=== PATIENT | male | born 1965 | race Caucasian/White ===

== ENCOUNTER → 2016-06-23 | Outpatient (CLI) | payer BC ==
[~2016-06-23] MED LIST: AZITTAB PO; ERGO500037 PO; HYDR1CAP85 PO; PANT40TA PO; PRED20TA PO; PRED20TA2 PO; VNTHFA/IN INH
[2016-06-23 13:44] LABS: ESTIMATED AVERAGE GLUCOSE 120 mg/dl; HA1C FLAG Normal (Normal)
== END | disposition home or self-care (01) ==
LOC: C.LAB1850 11:55
PROVIDERS: ATTEND Family Medicine
DX: R73.01 Impaired fasting glucose (principal); E55.9 Vitamin D deficiency, unspecified

== ENCOUNTER 2016-09-24 16:59 | Emergency (ER) | payer BC ==
[~2016-09-24] VITALS: Ht 182.9 cm; Wt 147.7 kg
[~2016-09-24 16:59] MED LIST changes: -AZITTAB PO; -ERGO500037 PO; -HYDR1CAP85 PO; -PRED20TA PO; -PRED20TA2 PO; -VNTHFA/IN INH
[2016-09-24 17:01] VITALS: TEMP 36.7; Ht 182.9 cm; Wt 147.7 kg
[2016-09-24] MEDS ORDERED: ERGO500037 PO (17:20)
[2016-09-24] MEDS ORDERED: hydrOXYzine HCL IM SOLN 50 MG/ML 1 ML VIAL IM STA (17:57)
[2016-09-24] MEDS ORDERED: DEXAMETHASONE SOD INJ 10 MG/ML VIAL IM ONE (18:00)
[2016-09-24] MEDS ORDERED: PRED20TA PO (18:02)
[2016-09-24] MEDS ORDERED: HYDR1CAP85 PO (18:02)
--- NOTE | 2016-09-24 18:03 | EMERGENCY ROOM VISIT NOTE ---
ED Visit Note First contact with patient: 17:29 CHIEF COMPLAINT: Itchy skin rash since yesterday HISTORY OF PRESENT ILLNESS: Patient is a 50-year-old white male who presents to the emergency department for evaluation of an itchy skin rash on his legs that he noticed yesterday. His granddaughter was getting , and he could not do anything about it yesterday. He notes a few small, red, slightly raised lesions on his legs. He reports that they're very itchy. He applied calamine lotion to the area. It has not helped. He denies any lesions elsewhere. The patient has been outside in the yard or the [place] recently where there could have been exposure to poison radhames plants. REVIEW OF SYSTEMS: Review of systems as per HPI. All other systems reviewed were negative. At least 6 systems reviewed. PMH: Electronic medical records are reviewed and summarized as above/below. See Problem List. SOCIAL HISTORY: Patient lives at home with his . PHYSICAL EXAM: Vital Signs: See nurses' notes. CONSTITUTIONAL: Patient is an obese 50-year-old white female awake and alert and in no acute distress. INTEGUMENTARY: The patient has a few small scattered lesions noted on his legs. They are slightly red, raised and some appear vesicular in nature, others are excoriated over. He has a lesion on the thighs bilaterally, and behind the left knee. ED course: Patient was medicated with Decadron 10 mg and Vistaril 50 mg IM. Lesions appear consistent with a contact dermatitis, possibly a rhus dermatitis. Differential diagnoses also entertained included urticaria, folliculitis, scabies, among others. The patient will be placed on a course of oral prednisone. He was advised to follow-up with his primary care provider if his symptoms are not improving. Problem List Medical Problems: (1) Esophageal Reflux Status: Chronic (2) Hand laceration Status: Resolved (3) Hand laceration Status: Resolved (4) Hyperlipidemia Nec/Nos Status: Chronic (5) Knee sprain Status: Resolved (6) Morbid Obesity Status: Chronic (7) Obstructive Sleep Apnea (Adult) (Pediatric) Status: Chronic (8) Patellar dislocation Status: Resolved (9) Work related injury Status: Resolved Surgical Problems: (1) H/O resection of large bowel Status: Resolved Current/Historical Medications Scheduled Ergocalciferol (Vitamin D 36594 Unit), 50,000 UNIT PO Q2D Pantoprazole (Protonix), 40 MG PO QAM Prednisone (Prednisone), 0 PO DAILY Scheduled PRN Hydroxyzine Pamoate (Vistaril), 1-2 CAP PO Q6 PRN for Itching Allergies Coded Allergies: Latex2 -Systemic Allergic Response (Verified Allergy, Severe, HIVES, ) Atorvastatin (Verified Allergy, Intermediate, "FELT LIKE LUMP IN STOMACH- PAINFUL", 09/24/16) Vital Signs Date Time Temp Pulse Resp B/P (MAP) Pulse Ox O2 Delivery O2 Flow Rate FiO2 09/24/16 18:32 78 20 148/82 97 09/24/16 17:01 36.7 81 18 151/83 94 Room Air Medications Administered Medications (Trade) Dose Ordered Sig/Omar Route Start Time Stop Time Status Last Admin Dose Admin Dexamethasone Sodium Phosphate (Decadron Inj) 10 mg NOW ONCE IM 09/24/16 18:00 09/24/16 18:01 DC 09/24/16 18:24 10 MG Hydroxyzine HCl (Vistaril IM) 50 mg NOW STAT IM 09/24/16 17:57 09/24/16 17:58 DC 09/24/16 18:24 50 MG Departure Information Impression Primary Impression: Pruritic rash Prescriptions Hydroxyzine Pamoate (VISTARIL) 25 Mg Cap 1-2 CAP PO Q6 Y for Itching, #30 CAP Prov: Bonnie Curran PA 09/24/16 Prednisone (Prednisone) 20 Mg Tab 0 PO DAILY, #30 TAB 3 DAILY FOR 5 DAYS, THEN 2 DAILY FOR 5 DAYS, THEN 1 DAILY FOR 5 DAYS. Prov: Bonnie Curran PA 09/24/16 Referrals Rodger Kearns M.D. (PCP) Patient Instructions My [facility] Additional Instructions DO NOT drive, drink alcohol, operate machinery, or perform dangerous activities today. You were given medications in the ER that can affect your ability to safely function or operate a vehicle. Prednisone 20mg: Once daily as instructed until the prescription is finished. It is best to take this earlier in the day as some patients note occasional difficulty falling asleep when taken in the late evening. Hydroxyzine 25mg: use 25 to 50 mg as needed every six hours for swelling, itching, or hives. This medication is sedating and will cause drowsiness. Avoid alcohol, operating machinery or dangerous equipment, working on ladders or roofs, DRIVING, or situations where being under the influence may be dangerous. Zantac 75: Take two pills twice a day along with Benadryl as needed for swelling , itching, or hives. Most people know this for its affect on the stomach, but it also acts similar to, but less potent than Benadryl for allergic reactions. Zantac is available [id number]. Continue current medications. Return to the emergency department for worsening of your rash, swelling of your face, lips, tongue, or throat, difficulty breathing, vomiting, or as needed. Follow-up with your primary care physician in 2-3 days for a recheck of your current condition.
[2016-09-24 18:32] VITALS: BP 148/82; PULSE 78; O2SAT 97
== END 2016-09-24 18:35 | disposition home or self-care (01) ==
LOC: C.EDB 17:00 → C.EDD 18:35
DX: L29.9 Pruritus, unspecified (principal); K21.9 Gastro-esophageal reflux disease without esophagitis; E78.5 Hyperlipidemia, unspecified; E66.01 Morbid (severe) obesity due to excess calories; G47.33 Obstructive sleep apnea (adult) (pediatric)

== ENCOUNTER → 2016-11-10 | Outpatient (CLI) | payer BC ==
[~2016-11-10] MED LIST changes: +ERGO500037 PO; +PRED20TA PO
[2016-11-10 15:32] LABS: ALT/SGPT 38 U/L (12-78); BLOOD UREA NITROGEN 15 mg/dl (7-18); BUN/CREATININE RATIO 15.4 (10-20); CALCIUM 9.1 mg/dl (8.5-10.1); CARBON DIOXIDE 25 mmol/L (21-32); CHLORIDE 104 mmol/L (98-107); CHOLESTEROL 164 mg/dl (0-200); CREATININE 0.97 mg/dl (0.60-1.40); GLUCOSE 79 mg/dl (70-99); POTASSIUM 3.6 mmol/L (3.5-5.1); SODIUM 138 mmol/L (136-145)
[2016-11-10 15:42] LABS: ALB/GLOB RATIO 0.9 (0.9-2); ALKALINE PHOSPHATASE 90 U/L (45-117); AST/SGOT 20 U/L (15-37); CHOLESTEROL/HDL RATIO 4.8; HDL CHOLESTEROL 34 mg/dl; LDL CHOLESTEROL CALCULATED 104 mg/dl; THYROID STIMULATING HORMONE 0.959 uIu/ml (0.300-4.500); TRIGLYCERIDES 128 mg/dl (0-150); VERY LOW DENSITY LIPOPROT CALC 26 mg/dl
[2016-11-11 08:23] LABS: ESTIMATED AVERAGE GLUCOSE 105 mg/dl; HA1C FLAG Normal (Normal)
== END | disposition home or self-care (01) ==
LOC: C.LAB1850 13:28
PROVIDERS: ATTEND Family Medicine
DX: R73.03 Prediabetes (principal); E55.9 Vitamin D deficiency, unspecified

== ENCOUNTER 2017-01-07 11:27 | Emergency (ER) | payer BC ==
[~2017-01-07] VITALS: Ht 182.9 cm; Wt 148.0 kg
[2017-01-07 11:45] VITALS: TEMP 36.6
[2017-01-07] MEDS ORDERED: ALBUT/IPRATROP 3MG/0.5MG NEB 3 ML VIAL INH STA (12:09)
[2017-01-07] MEDS ORDERED: METHYLPREDNISOLONE 125 MG VIAL IV STA (12:09)
[2017-01-07] MEDS ORDERED: HYDROCODONE/HOMATROPINE SYRUP 5MG/1.5MG 5ML UDP PO STA (12:09)
[2017-01-07 13:01] VITALS: Ht 182.9 cm; Wt 148.0 kg
[2017-01-07 13:16] VITALS: BP 127/57; PULSE 72; O2SAT 95
[2017-01-07 13:24] LABS: BASO % 0.2 %; BASO ABS # 0.02 K/uL (0-0.2); COMPLETE YES; EOS % 2.4 %; HEMATOCRIT 41.6 % (42-52); IG% 0.7 %; LYMPH ABS # 1.75 K/uL (1.2-3.4); MEAN CELL VOLUME 84.7 fL (80-100); MEAN CORPUSCULAR HEMOGLOBIN 29.1 pg (25-34); MEAN CORPUSCULAR HGB CONC 34.4 g/dl (32-36); MEAN PLATELET VOLUME 9.6 fL (7.4-10.4); MONO % 8.2 %; NEUT % 68.5 %; PLATELET COUNT 267 K/uL (130-400); RED BLOOD COUNT 4.91 M/uL (4.7-6.1); WHITE BLOOD COUNT 8.76 K/uL (4.8-10.8)
[2017-01-07 13:40] LABS: CREATININE 0.93 mg/dl (0.60-1.40)
--- NOTE | 2017-01-07 13:40 | DIAGNOSTIC IMAGING REPORT ---
CHEST 2 VIEWS ROUTINE CLINICAL HISTORY: Respiratory distress COMPARISON STUDY: 05/22/2014 FINDINGS: The heart is at the upper limits of normal in size. There is no failure. There is no focal pulmonary consolidation. There are no pleural effusions.[ IMPRESSION: No active disease in the chest. Electronically signed by: Lorenzo Farrell M.D. 01/07/2017 1:39 PM Dictated Date/Time: 01/07/2017 1:38 PM
[2017-01-07 13:41] LABS: BUN/CREATININE RATIO 17.1 (10-20); CALCIUM 8.8 mg/dl (8.5-10.1); POTASSIUM 3.8 mmol/L (3.5-5.1)
[2017-01-07 13:43] LABS: ALB/GLOB RATIO 0.8 (0.9-2)
[2017-01-07] MEDS ORDERED: AZITTAB PO (14:20)
[2017-01-07] MEDS ORDERED: VNTHFA/IN INH (14:20)
[2017-01-07] MEDS ORDERED: PRED20TA2 PO (14:20)
--- NOTE | 2017-01-08 12:08 | EMERGENCY ROOM VISIT NOTE ---
ED Visit Note First contact with patient: 11:50 Chief Complaint: I think have a chest cold. History of Present Illness: Mr. Lawson is a 51-year-old white male who ambulates into the ED accompanied by his complaining of cough and, rib pain. Historically patient does report he has had a history of bronchitis and pneumonia. Patient reports her symptoms started approximately 2 weeks ago with a mild nonproductive cough. During the last 2 weeks he reports he has gradually increasing cough. This cough remains nonproductive. He is tried over-the- counter cough medications without relief. He reports last 2 days his cough has become so severe that he cannot lie down and he has lost sleep. Associated with this cough he reports he has having bilateral lateral rib pain. He describes this pain as a constant dull achy sensation that becomes sharp with cough. He rates his discomfort 7/10. His pain is nonradiating. He has not identified any other aggravating factors related to the pain. He has not taken any medications for his discomfort prior to arrival at the hospital. He denies any other associated symptoms with his cough and pain including fevers, chills, sweats, skin eruptions, skin color changes, previous clots, claudication , palpitations, shortness of breath, wheezing, anterior chest pain, recent surgery, nausea, vomiting, orthopnea, dependent edema. Review of Systems: As noted above in history of present illness. All body systems were reviewed and found to be negative as noted above. Past Medical History: Prediabetes, status post hernia repair, unspecified knee surgery and partial colectomy. Current Medications: Protonix, vitamin D. Allergies to Medications: Latex, atorvastatin. Social History: Patient is currently employed; he lives with his and feels safe in his home environment; he admits to chewing tobacco and denies alcohol use. Physical Examination: Vital Signs: Date Time Temp Pulse Resp B/P (MAP) Pulse Ox O2 Delivery O2 Flow Rate FiO2 01/07/17 13:16 72 18 127/57 95 Room Air 01/07/17 12:56 72 01/07/17 12:38 95 Room Air 01/07/17 11:49 96 Room Air 01/07/17 11:45 36.6 78 20 130/75 97 Room Air GENERAL: 51-year-old male in mild distress due to symptoms, nontoxic-appearing, afebrile and hemodynamically stable. NEUROLOGICAL: Awake, alert and oriented to person, place and time. Answering questions appropriately and following commands. Normal gait. Good hand eye coordination. No focal motor sensory deficits. SKIN: Warm, dry and pink. No soft tissue eruptions or trauma noted. HEENT: Atraumatic and normocephalic. PERRLA. Sclera white and conjunctiva pink. No drainage from naris. Oral cavity moist and pink. Pharynx is nonerythematous or edematous. Speech normal. No lymphadenopathy. Trachea midline. No jugular venous distention. BACK: No tenderness over the bony spine. No CVA tenderness. THORAX: Lungs sounds show a few coarse rhonchi in the right base that clears with cough. There is a decrease in air movement bilaterally primarily in the bases. No wheezing, rales. Mild tenderness with chest compression without crepitus, subcutaneous air or deformities noted. No increased respiratory effort or rate. HEART: Regular rate and rhythm. No gallops, rubs or murmurs are appreciated. ABDOMEN: Obese, soft and nontender. Positive bowel sounds in all quadrants. No guarding, rigidity or organomegaly. EXTREMITIES: Moves all extremities well on command and with purpose. All distal neurovascular statuses are intact and equal bilaterally. No calf tenderness or cords. ED Course: Patient is assessed as noted above. Patient's medication list was reviewed. Laboratory Testing: Test 01/07/17 12:50 01/07/17 13:05 Range/Units White Blood Count 8.76 4.8-10.8 K/uL Red Blood Count 4.91 4.7-6.1 M/uL Hemoglobin 14.3 14.0-18.0 g/dL Hematocrit 41.6 42-52 % Mean Corpuscular Volume 84.7 80-100 fL Mean Corpuscular Hemoglobin 29.1 25-34 pg Mean Corpuscular Hemoglobin Concent 34.4 32-36 g/dl Platelet Count 267 130-400 K/uL Mean Platelet Volume 9.6 7.4-10.4 fL Neutrophils (%) (Auto) 68.5 % Lymphocytes (%) (Auto) 20.0 % Monocytes (%) (Auto) 8.2 % Eosinophils (%) (Auto) 2.4 % Basophils (%) (Auto) 0.2 % Neutrophils # (Auto) 6.00 1.4-6.5 K/uL Lymphocytes # (Auto) 1.75 1.2-3.4 K/uL Monocytes # (Auto) 0.72 0.11-0.59 K/uL Eosinophils # (Auto) 0.21 0-0.5 K/uL Basophils # (Auto) 0.02 0-0.2 K/uL RDW Standard Deviation 44.9 36.4-46.3 fL RDW Coefficient of Variation 14.6 11.5-14.5 % Immature Granulocyte % (Auto) 0.7 % Immature Granulocyte # (Auto) 0.06 0.00-0.02 K/uL Sodium Level 138 136-145 mmol/L Potassium Level 3.8 3.5-5.1 mmol/L Chloride Level 106 98-107 mmol/L Carbon Dioxide Level 27 21-32 mmol/L Anion Gap 5.0 3-11 mmol/L Blood Urea Nitrogen 16 7-18 mg/dl Creatinine 0.93 0.60-1.40 mg/dl Est Creatinine Clear Calc Drug Dose 140.6 ml/min Estimated GFR () 109.8 Estimated GFR (Non- 94.7 BUN/Creatinine Ratio 17.1 10-20 Random Glucose 104 70-99 mg/dl Calcium Level 8.8 8.5-10.1 mg/dl Total Bilirubin 0.4 0.2-1 mg/dl Aspartate Amino Transf (AST/SGOT) 19 15-37 U/L Alanine Aminotransferase (ALT/SGPT) 35 12-78 U/L Alkaline Phosphatase 94 45-117 U/L Total Protein 7.5 6.4-8.2 gm/dl Albumin 3.4 3.4-5.0 gm/dl Globulin 4.1 2.5-4.0 gm/dl Albumin/Globulin Ratio 0.8 0.9-2 Bedside Troponin I < 0.030 0-0.045 ng/ml Chest X-Rays: Were read by myself and the radiologist showing no acute infiltrates, effusions or pneumothorax. Radiologist notes that the heart border is within upper limits. No signs of heart failure. EKG: Was read by myself and reviewed with ; shows normal sinus rhythm with a ventricular rate of 76 bpm. Normal axis, intervals and complexes. No acute ST changes indicating ischemia, injury or infarction. This was compared to previous from May 2014 in no acute changes were noted. Patient was hydrated with normal saline, he was given an albuterol/Atrovent nebulizer breathing treatment, 125 mg of Solu-Medrol IV and 10 mL of Hycodan cough syrup. Patient was reassessed multiple times during his stay in the emergency department; reevaluation of his lungs he reports he was feeling much better and he had improved air movement and resolution of all scattered rhonchi. Patient's case was reviewed with ; we agreed on diagnostic approach , treatment, disposition and plan. Patient was educated about today's findings and instructed on his treatment plan ; he verbalized understanding and agreement with this plan. Clinical Impression: Acute bronchitis. Decision-Making: Initially my differential diagnosis I considered bronchitis, pneumonia, pulmonary embolism, acute coronary syndrome, thoracic aneurysm, pneumothorax, costochondritis and other causes. Disposition: Patient discharged home in stable condition accompanied by his ; prior to departure he was reassessed and subjectively reported he was still feeling much better and reported he had resolution of pain. Plan: Patient was prescribed a Zithromax for antibiotic coverage, placed on a 5 day course of steroids and was prescribed albuterol inhaler with spacer and instructed on their use. Patient was encouraged to follow-up with family physician for recheck. Patient is encouraged return the ED for worsening symptoms, fevers, coughing up blood, anterior chest pain or any new/concerning symptoms.
== END 2017-01-07 14:47 | disposition home or self-care (01) ==
LOC: C.EDB 11:28 → C.EDC 14:47
DX: J20.9 Acute bronchitis, unspecified (principal); Z87.01 Personal history of pneumonia (recurrent); R73.03 Prediabetes; Z90.49 Acquired absence of other specified parts of digestive tract; Z79.899 Other long term (current) drug therapy; F17.220 Nicotine dependence, chewing tobacco, uncomplicated

== ENCOUNTER 2017-10-12 17:00 | Emergency (ER) | payer BC ==
[~2017-10-12] VITALS: Ht 182.9 cm; Wt 156.6 kg
[~2017-10-12 17:00] MED LIST changes: -PRED20TA PO
[2017-10-12 17:03] VITALS: TEMP 36.8; Ht 182.9 cm; Wt 156.6 kg
[2017-10-12] MEDS ORDERED: HYDR25SU20 PR (18:15)
--- NOTE | 2017-10-12 18:16 | EMERGENCY ROOM VISIT NOTE ---
History First contact with patient: 17:57 Chief Complaint: RECTAL BLEEDING Stated Complaint: BLEEDING HEMROIDS History of Present Illness The patient is a 51 year old male who presents to the Emergency Room with complaints of intermittent rectal bleeding for the last 2 months. The patient states that it is bleeding hemorrhoids. He only bleeds intermittently when he has a bowel movement. He states it is gotten worse over the last 2 months. He states that now hurts to have a bowel movement. He does not have a problem with constipation. He normally does not have to strain to have a bowel movement. He was told 2 years ago when he had a colonoscopy that he has internal hemorrhoids. The patient called his family doctor today and he was instructed to come to the emergency room. The patient has never seen a surgeon for hemorrhoids. The patient denies any abdominal pain, nausea or vomiting. The patient is not on any blood thinners. He does not have any bleeding disorders. Review of Systems 10 system review was performed and was negative unless stated otherwise history of present illness. Past Medical/Surgical History Medical Problems: (1) Esophageal Reflux (2) Hand laceration (3) Hand laceration (4) Hyperlipidemia Nec/Nos (5) Knee sprain (6) Morbid Obesity (7) Obstructive Sleep Apnea (Adult) (Pediatric) (8) Patellar dislocation (9) Work related injury Surgical Problems: (1) H/O resection of large bowel Social History Smoking Status: Never Smoker Occupation Status: employed Current/Historical Medications Scheduled Ergocalciferol (Vitamin D 83558 Unit), 50,000 UNIT PO Q2D Pantoprazole (Protonix), 40 MG PO QAM Physical Exam Vital Signs Date Time Temp Pulse Resp B/P (MAP) Pulse Ox O2 Delivery O2 Flow Rate FiO2 10/12/17 17:03 36.8 91 17 174/83 94 Room Air Physical Exam GENERAL: Obese 51-year-old male appears in no acute distress. MENTAL Status: Alert and oriented 3. LUNGS: Clear auscultation without wheezes rales or rhonchi. CARDIAC: Regular rate and rhythm with occasional ectopy. Pulses is full and equal throughout. ABDOMEN: Positive bowel sounds all 4 quadrants. Soft, nontender to palpation . Cannot evaluate for organomegaly or masses secondary to patient's size. RECTAL: No external masses noted. Anal sphincter tone intact. Rectal exam was too painful therefore he did not do complete internal rectal exam. I do not appreciate any palpable masses. Stool guaiac was negative Medical Decision & Procedures ED Course The patient was evaluated. The patient's EMR medication list were reviewed. The patient was informed of treatment plan and was in agreement. The patient was discharged home in stable condition. Medical Decision Differential diagnosis include internal versus external thrombosed hemorrhoids. His hemorrhoids are internal the patient will be referred to surgery but in the interim will prescribe him Anusol HC suppositories. [facility] Drug Monitoring Program Search Results: patient reviewed within database Medication Reconcilliation Current Medication List: was personally reviewed by ms Blood Pressure Screening Patient's blood pressure: Elevated blood pressure Blood pressure disposition: Elevated BP felt to be situational Impression Primary Impression: Internal bleeding hemorrhoids Departure Information Dispostion Home / Self-Care Condition GOOD Prescriptions Hydrocortisone Acetate (Rectal (ANUSOL-HC) 25 Mg Sup 25 MG ND BID for 5 Days, #10 SUPP Prov: Geovanna Pepper PA-C 10/12/17 Referrals Rodger Kearns M.D. (PCP) Haider Herman M.D. Forms HOME CARE DOCUMENTATION FORM, IMPORTANT VISIT INFORMATION, WORK / SCHOOL INSTRUCTIONS Patient Instructions ED Hemorrhoids, My [facility] Additional Instructions Try not to strain for a bowel movement. Recommend a stool softener daily such as MiraLAX or Colace. Use Anusol suppositories as directed. Call Dr. Herman for follow-up appointment for definitive treatment.
[2017-10-12 18:32] VITALS: BP 134/80; PULSE 87; O2SAT 96
== END 2017-10-12 18:33 | disposition home or self-care (01) ==
LOC: C.EDB 17:02 → C.EDD 18:33
DX: K64.8 Other hemorrhoids (principal); E66.01 Morbid (severe) obesity due to excess calories; K21.9 Gastro-esophageal reflux disease without esophagitis; Z90.49 Acquired absence of other specified parts of digestive tract

== ENCOUNTER 2024-05-07 07:53 | Inpatient (IN) ==
--- OUTSIDE RECORDS SUMMARY | 2024-05-07 07:59 | External Medical Summary | Summary of Care ---
Author Name Unknown Organization [facility] Address [address] [place] [address] Phone [phone] Care Team Providers Care Senior Stock Plan Administrator Name Role Phone Vera Shaikh MD Primary Care Provider [phone] Reason for Visit * Reason Comments eRx-Medication Refill Encounter Details Date Type Department Care Team (Late st Contact Info) Description 03/27/2024 Refill [facility] [address] [place] [address] Vera Shaikh MD [address] [place] [address] Type 2 diabetes mellitus with hemoglobin A1c goal of less than 7.0% ([facility]) Allergies Active Allergy Reactions Criticality Noted Date Comments Atorvastatin 07/01/2018 "Didn't feel right" documented as of this encounter (statuses as of 03/28/2024) Medications loperamide (IMODIUM) 2 MG Capsule Take 1 Capsule by mouth in the morning. Active Aspirin 81 MG Oral Tablet ChewableIndicat ions:Type 2 diabetes mellitus with hemoglobin A1c goal of less than 7.0% (HCC) Take 1 Tab by mouth daily. with food. 100 Tab 5 07/28/19 21 Active Multivitamin Adult Extra C Oral Tablet Chewable Take by mouth . Active OneTouch Delica Plus [id number] USE TO CHECK BLOOD SUGAR ONCE DAILY. 100 Each 3 12/17/19 22 Active OneTouch Verio In Vitro Strip (Glucose Blood) USE TO CHECK BLOOD SUGAR ONCE DAILY. 100 Strip 3 09/04/19 24 Active Rosuvastatin Calcium 5 MG Oral Tablet (Crestor)Indica tions:Hyperlipi demia with target LDL less than 100 Take 1 Tablet by mouth in the morning. 90 Tablet 1 03/05/20 24 Active Lisinopril 10 MG Oral Tablet (Prinivil)Indic ations:HTN, goal below 130/80 TAKE 1/2 TABLET BY MOUTH DAILY 45 Tablet 1 03/05/20 24 Active Pantoprazole Sodium 40 MG Oral Tablet Delayed Release (Protonix)Indic ations:Gastroes ophageal reflux disease, unspecified whether esophagitis present TAKE 1 TABLET BY MOUTH ONCE DAILY 90 Tablet 1 03/05/20 24 Active Benzonatate 100 MG Oral CapsuleIndicati ons:Bronchitis, complicated Take 1-2 Capsules by mouth 3 times a day as needed for Cough. 45 Capsule 1 03/24/19 25 Active metFORMIN HCl ER 500 MG Oral Tablet Extended Release 24 Hour (Glucophage XR)Indications: Type 2 diabetes mellitus with hemoglobin A1c goal of less than 7.0% (HCC) TAKE 4 TABLETS BY MOUTH DAILY 360 Tablet 2 03/28/19 25 Active metFORMIN HCl ER 500 MG Oral Tablet Extended Release 24 Hour (Glucophage XR)Indications: Type 2 diabetes mellitus with hemoglobin A1c goal of less than 7.0% (HCC) TAKE 4 TABLETS BY MOUTH DAILY 360 Tablet 2 06/13/19 24 025 Discontinued documented as of this encounter (statuses as of 03/28/2024) Active Problems Problem Noted Date Diagnosed Date Hyperlipidemia with target LDL less than 70 11/17 Type 2 diabetes mellitus wit h hemoglobin A1c goal of less than 7.0% 02/21/2021 Routine medical exam 01/28/2020 HTN, goal below 130/80 09/26/2018 History of colonic diverticulitis 09/26/2018 History of partial colectomy 09/26/2018 Tobacco use disorder 09/26/2018 Overview (09/26/2018): Snuff - 1/2 can per day GERD (gastroesophageal reflux disease) 9 MARION (obstructive sleep apnea) 10/02/2012 DJD (degenerative joint disease) 10/02/2012 Obesity, morbid (more than 1 00 lbs over ideal weight or BMI > 40) 10/02/2012 documented as of this encounter (statuses as of 03/28/2024) Resolved Problems Problem Noted Date Diagnosed Date Resolved Date Prediabetes 12/30/2018 02/21/2021 Overview: Per Prediabetes protocol documented as of this encounter (statuses as of 03/28/2024) Immunizations Name Administration Dates Next Due Pneumococcal Conjugate Vacci ne, 20-valent ([id number]) 03/02/2023,05/06/2022(Deferred: Patient Refused - Left without receiving) Seasonal Influenza, PF, 6 M & above, IM , (FluLaval or Fluzone) 01/28/2020,01/27/2019 TDAP, Age 7 and older, IM (Adacel) 12/04/2023 Zoster Vaccine Recombinant (Shingrix) 04/02/2023 documented as of this encounter Social History Tobacco Use Types Packs/Day Years Used Date Smoking Tobacco: Never Smokeless Tobacco: Current Snuff Comments:1/2 a can a day Alcohol Use Standard Drinks/Week Comments Yes 0 (1 standard drink = 0.6 oz pur e alcohol) occas PHQ-2 Answer Date Recorded PHQ Adult Total Score 0 03/24/2024 Hunger Vital Sign Answer Date Recorded Worried About Running Out of Food in the Last Ye ar Never true 09/26/2018 Ran Out of Food in the Last Year Never true 09/26/2018 Sex and Gender Information Value Date Recorded Sex Assigned at Male 09/26/2018 11:07 AM EDT Legal Sex Male 6:27 AM EST Gender Identity Male 09/26/2018 11:07 AM EDT Sexual Orientation Straight 09/26/2018 11 :07 AM EDT documented as of this encounter Miscellaneous Notes * Telephone Encounter - Tonya Montalvo, [facility] - 03/28/2024 9:50 AM ESTSigned Prescriptions: Disp Refills metFORMIN HCl ER 500 MG Oral Tablet Extend*360 Ta*2 Sig: TAKE 4 TABLETS BY MOUTH DAILYAuthorizing Provider: VERA SHAIKH User: TONYA MONTALVO documented in this encounter Plan of Treatment Upcoming Encounters Date Type Department Care Team (Late st Contact Info) Description 04/04/2024 2:00 PM EST Nurse Only Ancillary Department, [place] [phone] Nurse [facility] [address] [id number] 09/23/2024 7:40 AM EDT Office Visit Family Practice, [facility] [address] [phone] Vera Shaikh MD [address] [address] Scheduled Procedures Name Priority Associated Diagnoses Date/Ti me COLONOSCOPY FLEXIBLE PROXIMAL DIAGNOSTIC Recall Screen for colon cancer Health Maintenance Due Date Last Done Comments Cologuard 2010 Fecal Occult Blood Test 2010 Sigmoidoscopy 2010 Zoster Vaccines (2 of 2) 05/28/2023 04/02/2023 COVID-19 Vaccine ( season) 2023 Influenza Vaccine (FLU shot) (#1) 2023 01/28/2020, 01/27/2019 Albumin/Creatinine Ratio 04/02/20242 024, 04/24/2022, 02/21/2021, Additional history exists Colonoscopy 07/29/2024 07/29/2021, 07/17, 12/29/2015, Additional history exists Colorectal Cancer Screening 07/29/2024 HbA1c 09/21/2024 03/24/2024, 11/17, 04/02/2023, Additional history exists Diabetic Eye Exam 12/03/2024 12/04/2023, 09/05/2021 Depression Screening 03/24/2025 03/24/2024 Diabetic Foot Exam 03/24/2025 03/24/2024 GFR 03/24/2025 03/24/2024, 03/19, 04/24/2022, Additional history exists HIV Screening 03/24/2025 Postponed from 1980 (Patient Declined After Education) Hepatitis C Screening 03/24/2025 Postpo kia from 10/19/1983 (Patient Declined After Education) Lipid Panel 03/24/2029 03/24/2024, 03/19, 04/24/2022, Additional history exists DTap/Tdap Vaccines (3 - Td or Tdap) 12/03/2033 12/04/2023, 10/04/2013 Pneumococcal Vaccine: 50+ Years Completed 03/02/2023 HPV (Gardasil) Vaccine Aged Out No lo nger eligible based on patient's age to complete this topic Hepatitis B Vaccine Discontinued MENINGOCOCCAL (MENACTRA/MENVEO) Aged Out No longer eligible based on patient's age to complete this topic documented as of this encounter Medical Devices Not on filedocumented as of this encounter Visit Diagnoses Diagnosis Type 2 diabetes mellitus with hemoglobin A1c goal of less than 7.0% (HCC) documented in this encounter Care Teams Senior Stock Plan Administrator Relationship Specialty Start Date End Date Vera Shaikh MD PCP - General Family Medicine 09/26/18 documented as of this encounter
--- OUTSIDE RECORDS SUMMARY | 2024-05-07 07:59 | External Medical Summary ---
Author Name Unknown Address Unknown Organization K01:[facility] [place] [address] [place] [address] Laboratory Report Ordering Provider Test Date Status PAVAN GAMEZ 03/24/2024 12:11:58 Final Observation Date Value Abnormality Reference (Units ) Status Vitamin B12 03/24/2024 12:11:58 >2000 Above high normal 232-1245 (pg/mL) Final Performing Location [facility] - [address] [place] [address]
--- OUTSIDE RECORDS SUMMARY | 2024-05-07 07:59 | External Medical Summary | Summary of Care ---
Author Name Unknown Organization [facility] Address [address] [place] [address] Phone [phone] Care Team Providers Care Asbestos Coverer Name Role Phone Haider Shaikh MD Primary Care Provider [phone] Reason for Visit * Reason Comments Outpatient Testing Encounter Details Date Type Department Care Team (Late st Contact Info) Description 03/24/2024 1:40 PM EST Laboratory Laboratory, [place] [facility] [address] [place] [address] [facility] [address] [facility] [place] [address] Type 2 diabetes mellitus with hemoglobin A1c goal of less than 7.0% (HCC); Hyperlipidemia with target LDL less than 70; Encounter for long-term (current) use of medications Allergies Active Allergy Reactions Criticality Noted Date Comments Atorvastatin 07/01/2018 "Didn't feel right" documented as of this encounter (statuses as of 03/24/2024) Medications loperamide (IMODIUM) 2 MG Capsule Take 1 Capsule by mouth in the morning. Active Aspirin 81 MG Oral Tablet ChewableIndicati ons:Type 2 diabetes mellitus with hemoglobin A1c goal of less than 7.0% (HCC) Take 1 Tab by mouth daily. with food. 100 Tab 5 1 Active Multivitamin Adult Extra C Oral Tablet Chewable Take by mouth . Active OneTouch Delica Plus [id number] USE TO CHECK BLOOD SUGAR ONCE DAILY. 100 Each 3 2 Active metFORMIN HCl ER 500 MG Oral Tablet Extended Release 24 Hour (Glucophage XR)Indications:T ype 2 diabetes mellitus with hemoglobin A1c goal of less than 7.0% (HCC) TAKE 4 TABLETS BY MOUTH DAILY 360 Tablet 2 4 Active OneTouch Verio In Vitro Strip (Glucose Blood) USE TO CHECK BLOOD SUGAR ONCE DAILY. 100 Strip 3 4 Active Rosuvastatin Calcium 5 MG Oral Tablet (Crestor)Indicat ions:Hyperlipide cj with target LDL less than 100 Take 1 Tablet by mouth in the morning. 90 Tablet 1 4 Active Lisinopril 10 MG Oral Tablet (Prinivil)Indica tions:HTN, goal below 130/80 TAKE 1/2 TABLET BY MOUTH DAILY 45 Tablet 1 4 Active Pantoprazole Sodium 40 MG Oral Tablet Delayed Release (Protonix)Indica tions:Gastroesop hageal reflux disease, unspecified whether esophagitis present TAKE 1 TABLET BY MOUTH ONCE DAILY 90 Tablet 1 4 Active Benzonatate 100 MG Oral CapsuleIndicatio ns:Bronchitis, complicated Take 1-2 Capsules by mouth 3 times a day as needed for Cough. 45 Capsule 1 5 Active documented as of this encounter (statuses as of 03/24/2024) Active Problems Problem Noted Date Diagnosed Date [...] as of this encounter (statuses as of 03/24/2024) Resolved Problems Problem Noted Date Diagnosed Date Resolved Date Prediabetes 12/30/2018 02/21/2021 Overview: Per Prediabetes protocol documented as of this encounter (statuses as of 03/24/2024) Immunizations Name Administration Dates Next Due Pneumococcal Conjugate Vacci ne, 20-valent ([id number]) 03/02/2023,05/06/2022(Deferred: Patient Refused - Left without receiving) [...] AM EDT documented as of this encounter Plan of Treatment Upcoming Encounters Date Type Department Care Team (Late st Contact Info) Description 04/04/2024 2:00 PM EST Nurse Only Ancillary Department, [facility] [address] [phone] Nurse [facility] [address] [id number] 09/23/2024 7:40 AM EDT Office Visit Family [facility], [facility] Lees [address] [phone] Haider Shaikh MD [address] [address] Pending Results Name Type Priority Associated Diagnoses Date /Time COMPREHENSIVE METABOLIC PANEL Lab Routine Type 2 diabetes mellitus with hemoglobin A1c goal of less than 7.0% (HCC) 03/24/2024 12:11 PM EST LIPID PANEL WITH DIRECT LDL IF TG IS HIGH Lab Routine Hyperlipidemia with target LDL less than 70 03/24/2024 12:11 PM EST VITAMIN B12 Lab Routine Encounter for long-term (current) use of medications 03/24/2024 12:11 PM EST MAGNESIUM Lab Routine Encounter for long-term (current) use of medications 03/24/2024 12:11 PM EST HEMOGLOBIN A1C Lab Routine Type 2 diabetes mellitus with hemoglobin A1c goal of less than 7.0% ([facility]) 03/24/2024 12:11 PM EST Scheduled Procedures Name Priority Associated Diagnoses Date/Ti me COLONOSCOPY FLEXIBLE PROXIMAL DIAGNOSTIC Recall Screen for colon cancer Health Maintenance Due Date Last Done Comments Cologuard 2010 Fecal Occult Blood Test 2010 Sigmoidoscopy 2010 Zoster Vaccines (2 of 2) 05/28/2023 04/02/2023 COVID-19 Vaccine ( season) 2023 Influenza Vaccine (FLU shot) (#1) 2023 01/28/2020, 01/27/2019 Albumin/Creatinine Ratio 04/02/2024 024, 04/24/2022, 02/21/2021, Additional history exists GFR 04/02/2024 04/02/2023, 02/08/2022, 08/26/2021, Additional history exists HbA1c 06/02/2024 12/04/2023, 03/19, 04/24/2022, Additional history exists Colonoscopy 07/29/2024 07/29/2021, 07/17, 12/29/2015, Additional history exists Colorectal Cancer Screening 07/29/2024 Diabetic Eye Exam 12/03/2024 12/04/2023, 09/05/2021 Depression Screening 03/24/2025 03/24/2024 Diabetic Foot Exam 03/24/2025 03/24/2024 HIV Screening 03/24/2025 Postponed from 1980 (Patient Declined After Education) Hepatitis C Screening 03/24/2025 Postpo kia from 10/19/1983 (Patient Declined After Education) Lipid Panel 04/02/2028 04/02/2023, 0208/2022, 02/21/2021, Additional history exists DTap/Tdap Vaccines (3 - [...] A1c goal of less than 7.0% (HCC) Hyperlipidemia with target LDL less than 70 Other and unspecified hyperlipidemia Encounter for long-term (current) use of medications Encounter for long-term (current) use of other medications documented in this encounter Care Teams Asbestos Coverer Relationship Specialty Start Date End Date Haider Shaikh MD PCP - General Family Medicine 09/26/18 documented as of this encounter
--- OUTSIDE RECORDS SUMMARY | 2024-05-07 07:59 | External Medical Summary ---
Author Name Unknown Address Unknown Organization K01:[facility] - [address] [place] [address] Laboratory Report Ordering Provider Test Date Status PAVAN GAMEZ 03/24/2024 12:11:58 Final Observation Date Value Abnormality Reference (Units ) Status Magnesium 03/24/2024 12:11:58 2.4 1.5-2.6 (m g/dL) Final Performing Location [facility] - [address] [place] [address]
--- OUTSIDE RECORDS SUMMARY | 2024-05-07 07:59 | External Medical Summary | Summary of Care ---
Author Name Unknown Organization [facility] Address [address] [place] [address] Phone [phone] Care Team Providers Care Occupational Therapist Aide Name Role Phone Haider Shaikh MD Primary Care Provider Reason for Visit * Reason Onset Date Comments Immunizations 04/04/2024 Shingrix Encounter Details Date Type Department Care Team (Late st Contact Info) Description 04/04/2024 2:00 PM EST Nurse Only [facility] Department[facility] [address] [facility] [address] [phone] [place], Nurse [address] [facility] [place] [address] Immunizations (Shingrix) Allergies Active Allergy Reactions Criticality Noted Date Comments Atorvastatin 07/01/2018 "Didn't feel right" documented as of this encounter (statuses as of 04/04/2024) Medications loperamide (IMODIUM) 2 MG Capsule Take 1 Capsule by mouth in the morning. Active Aspirin 81 MG Oral Tablet ChewableIndicati ons:Type 2 diabetes mellitus with hemoglobin A1c goal of less than 7.0% ([facility]) Take 1 Tab by mouth daily. with food. 100 Tab 5 1 Active Multivitamin Adult Extra C Oral Tablet Chewable Take by mouth . Active OneTouch Delica Plus [id number] USE TO CHECK BLOOD SUGAR ONCE DAILY. 100 Each 3 2 Active OneTouch Verio In Vitro Strip (Glucose [...] for Cough. 45 Capsule 1 5 Active metFORMIN HCl ER 500 MG Oral Tablet Extended Release 24 Hour (Glucophage XR)Indications:T ype 2 diabetes mellitus with hemoglobin A1c goal of less than 7.0% (HCC) TAKE 4 TABLETS BY MOUTH DAILY 360 Tablet 2 5 Active documented as of this encounter (statuses as of 04/04/2024) Active Problems Problem Noted Date Diagnosed Date [...] as of this encounter (statuses as of 04/04/2024) Resolved Problems Problem Noted Date Diagnosed Date Resolved Date Prediabetes 12/30/2018 02/21/2021 Overview: Per Prediabetes protocol documented as of this encounter (statuses as of 04/04/2024) Immunizations Name Administration Dates Next Due Pneumococcal Conjugate Vacci ne, 20-valent ([id number]) 03/02/2023,05/06/2022(Deferred: Patient Refused - Left without receiving) Seasonal Influenza, PF, 6 M & above, IM , (FluLaval or Fluzone) 01/28/2020,01/27/2019 TDAP, Age 7 and older, IM (Adacel) 12/04/2023 Zoster Vaccine Recombinant (Shingrix) 04/04/2024 ,04/02/2023 documented as of this encounter Social History [...] AM EDT documented as of this encounter Patient Instructions * Patient Instructions* Lolita Jain LPN - 04/04/2024 2:00 PM EST ~~PATIENT INSTRUCTIONS FOR SHINGRIX VACCINE~~ Possible side effects of Shingrix vaccine, (shingles), are usually mild and can include: 1. Soreness or redness at injection site 2. Low grade fever 3. Body aches You may use a fever / pain reducing medication as needed for these symptoms. LET YOUR DOCTOR KNOW IMMEDIATELY IF YOU HAVE DIFFICULTY BREATHING OR SWALLOWING, EXPERIENCE ITCHINGOF FEET OR HANDS, HAVE SWELLING OF EYES, FACE OR INSIDE OF NOSE. ~~PATIENT INSTRUCTIONS FOR SHINGRIX VACCINE~~ Possible side effects of Shingrix vaccine, (shingles), are usually mild and can include: 1. Soreness or redness at injection site 2. Low grade fever 3. Body aches You may use a fever / pain reducing medication as needed for these symptoms. LET YOUR DOCTOR KNOW IMMEDIATELY IF YOU HAVE DIFFICULTY BREATHING OR SWALLOWING, EXPERIENCE ITCHINGOF FEET OR HANDS, HAVE SWELLING OF EYES, FACE OR INSIDE OF NOSE. documented in this encounter Progress Notes * Lolita Jain LPN - 04/04/2024 2:00 PM EST Does the patient have active shingles? No If, yes, patient must wait to receive vaccine till after rash is gone. Does the patient have an illness today with a fever more than 101?F? No Has the patient ever had a serious allergic reaction after receiving a vaccination? No Has the patient had a blood test showing they are not immune to Chicken Pox (rare)? No If yes, should get Chicken pox vaccine instead of shingrix. Verified patient has prescription/drug coverage. Patient has been informed that [place] copays are close to $0. In most cases copays will be around $10. The maximum co-pay patients may get could as high as $200. not applicable Shingrix Vaccine Information Sheet has been provided. Lolita Jain LPN 04/04/2024 2:00 PM IMMUNIZATION ADMINISTRATION DOCUMENTATION Time Out Procedure Performed: Yes Patient Identified (Ask Name/Date of ): Yes Patient allergic to latex?No VFC Stock? No Immunization(s) verified: Yes, Immunization Name: Shingrix, VIS Sheet(s) given: Yes Verified Side and Site: Yes Verified Shot(s) with Parent(s)/Patient: Yes Shingrix was administered per clinic protocol. Patient received the Shingrix VIS (Vaccine Information Sheet). Lolita Jain LPN, 04/04/2024, 2:00 PM Does the patient have active shingles? No If, yes, patient must wait to receive vaccine till after rash is gone. Does the patient have an illness today with a fever more than 101?F? No Has the patient ever had a serious allergic reaction after receiving a vaccination? No Has the patient had a blood test showing they are not immune to Chicken Pox (rare)? No If yes, should get Chicken pox vaccine instead of shingrix. Verified patient has prescription/drug coverage. Patient has been informed that [place] copays are close to $0. In most cases copays will be around $10. The maximum co-pay patients may get could as high as $200. not applicable Shingrix Vaccine Information Sheet has been provided. Lolita Jain LPN 04/04/2024 2:01 PM IMMUNIZATION ADMINISTRATION DOCUMENTATION Time Out Procedure Performed: Yes Patient Identified (Ask Name/Date of ): Yes Patient allergic to latex?No VFC Stock? No Immunization(s) verified: Yes, Immunization Name: Shingrix, VIS Sheet(s) given: Yes Verified Side and Site: Yes Verified Shot(s) with Parent(s)/Patient: Yes Shingrix was administered per clinic protocol. Patient received the Shingrix VIS (Vaccine Information Sheet). Lolita Jain LPN, 04/04/2024, 2:01 PM documented in this encounter Plan of Treatment Upcoming Encounters Date Type Department Care Team (Late st Contact Info) Description 09/23/2024 7:40 AM EDT Office Visit [facility] [address] [facility] [facility] [phone] Haider Shaikh MD [address] [facility] [facility] [place] [address] Scheduled Procedures Name Priority Associated Diagnoses Date/Ti me COLONOSCOPY FLEXIBLE PROXIMAL DIAGNOSTIC Recall Screen for colon cancer Health Maintenance Due Date Last Done Comments Cologuard 2010 Fecal Occult Blood Test 2010 Sigmoidoscopy 2010 COVID-19 Vaccine ( season) 2023 Influenza Vaccine (FLU shot) (#1) 2023 01/28/2020, 01/27/2019 *BASELINE EKG FOR HTN 03/28/2024 Albumin/Creatinine Ratio 04/02/2024 024, 04/24/2022, 02/21/2021, Additional history exists Colonoscopy [...] 10/04/2013 Pneumococcal Vaccine: 50+ Years Completed 03/02/2023 Zoster Vaccines Completed 04/04/2024, 04/02/2023 HPV (Gardasil) Vaccine Aged Out No lo nger eligible based on patient's age to complete this topic Hepatitis B Vaccine Discontinued MENINGOCOCCAL (MENACTRA/MENVEO) Aged Out No longer eligible based on patient's age to complete this topic documented as of this encounter Medical Devices Not on filedocumented as of this encounter Visit Diagnoses Diagnosis Need for vaccination for zoster- Primary Need for prophylactic vaccination and inoculation against other viral diseases documented in this encounter Care Teams Occupational Therapist Aide Relationship Specialty Start Date End Date Haider Shaikh MD PCP - General Family Medicine 09/26/18 documented as of this encounter
--- OUTSIDE RECORDS SUMMARY | 2024-05-07 07:59 | External Medical Summary | Summary of Care ---
Author Name Unknown Organization [facility] Address [address] [place] [address] Phone [phone] Care Team Providers Care Portable Machine Sander Name Role Phone Haider Shaikh MD Primary Care Provider [phone] Reason for Visit * Reason Comments Emergency Department Follow-Up Patient i s here today for an ED follow up due to congestion, cough and overall not feeling well. States that he still is experiencing an ongoing cough but otherwise is feeling better, cough is a dry. Patient state he is having pain and discomfort in the right shoulder, ongoing for a couple of weeks and is agitated with certain movements. Has been using tylenol and ibuprofen for the pain with slight relief. Encounter Details Date Type Department Care Team (Late st Contact Info) Description 03/24/2024 11:00 AM EST Office Visit [facility] [place] [address] [place] [address] Haider Shaikh MD [address], [place] [id number] Type 2 diabetes mellitus with hemoglobin A1c goal of less than 7.0% ([facility])*; Screening for depression; Bronchitis, complicated; Rotator cuff tendinitis, right Allergies Active Allergy Reactions Criticality Noted Date [...] by mouth . Active OneTouch Delica Plus [id number] USE TO CHECK BLOOD SUGAR ONCE DAILY. [...] Next Due Pneumococcal Conjugate Vacci ne, 20-valent ([id number]) 03/02/2023,05/06/2022(Deferred: Patient Refused - Left without receiving) [...] this encounter Patient Instructions * Patient Instructions* Patricia Acosta LPN - 03/24/2024 10:58 AM EST Diabetes: Keeping Feet Healthy Inspect your feet every day for signs of a problem. Diabetes can damage nerves in your feet and cause neuropathy. This condition makes it hard for you to feel injuries or sore spots. Diabetes can also change blood flow, making it harder for small problems, like a blister, to heal properly. In fact, minor injuries can quickly become serious infections that send you to the hospital. Practice self-care to protect your feet and keep them healthy. Take Special Care Inspect your feet daily for problems such as redness, blisters, cracks, dry skin, or numbness. Use a mirror to see the bottoms of your feet. Or, ask for help. Manage your diabetes. Monitor and control your blood sugar. Take all your medications as prescribed. Avoid walking barefoot, even indoors. Wash your feet with warm water and mild soap. Dry well, especially between toes. Dont treat corns or calluses yourself. Talk to your doctor or lawn mower repairer (a doctor who specializes in foot care) if you need assistance trimming your toenails. Use moisturizing cream or lotion if you have dry skin, but dont use it between toes. Dont use heating pads on your feet. If you have neuropathy, you could get a burn and not feel it. Stop smoking. Smoking restricts blood flow and can make it harder for wounds to heal. Have Regular Checkups Foot problems can develop quickly. So be sure to follow your healthcare teams schedule for regular checkups. During office visits, take off your shoes and socks as soon as you get in the exam room. Ask your healthcare provider to examine your feet for problems. This will make it easier to find and treat small skin irritations before they get worse. Regular checkups can also help keep track of the blood flow and feeling in your feet. If you have neuropathy, you may need to have checkups more often. Wear Proper Footwear Wearing proper footwear is very important. If areas of your feet have been damaged by too much pressure, your healthcare provider may recommend changing your footwear. In some cases, avoiding high heels or tight work boots may be all thats needed. Or, your healthcare provider may recommend special shoes or custom inserts. These help protect your feet and keep existing irritations from getting worse. If you need special footwear, ask your healthcare provider if you qualify for [employer] diabetic shoe program. Make Sure Shoes and Socks Fit Any pair of shoes--new or old--should feel comfortable as soon as you put them on. There shouldnt be any rubbing when you walk. Wear the right shoe for any activity. For instance, a running shoe is designed to keep your feet injury-free while jogging. Buy shoes at the end of the day, when your feet are larger. Make sure they provide support without feeling too loose. Make sure your socks fit, t oo. Wear soft, seamless, well-padded socks for activity. Cotton or microfiber socks are best to help to absorb sweat. To protect your feet, avoid shoes that are open-toed or open-heeled. If you have questions about what kinds of shoes and socks are best, talk to your healthcare team. Get Regular Exercise Regular exercise improves blood flow in your feet. It also increases foot strength and flexibility.Gentle exercises, like walking or riding a stationary bicycle, are best. You can also do special foot exercises. Just be sure to talk with your healthcare provider before starting any exercise program. Also mention if any exercise causes pain, redness, or other signs of foot problems. Note: If you have any kind of break in the skin of your foot or ankle, keep the area clean. Then call your doctor--especially if the area doesnt appear to be healing. [id number] [employer], [address] [place] [address], [place] [address]. All rights reserved. This information is not intended as a substitute for professional medical care. Always follow your healthcare professional's instructions. documented in this encounter Progress Notes * Haider Shaikh MD - 03/24/2024 11:51 AM EST Subjective: Shahab Lawson is a 58 year old male. Chief Complaint Patient presents with Emergency Department Follow-Up Patient is here today for an ED follow up due to congestion, cough and overall not feeling well. States that he still is experiencing an ongoing cough but otherwise is feeling better, cough is a dry. Patient state he is having pain and discomfort in the right shoulder, ongoing for a couple of weeksand is agitated with certain movements. Has been using tylenol and ibuprofen for the pain with slight relief. HPI: 58-year-old with known history type 2 diabetes and hypertension gastroesophageal reflux seen today for scheduled six-month recheck. Unfortunately he developed a respiratory infection with significant chest congestion and cough in February. He was seen twice at [facility] with the 1st visit March 03 in the 2nd visit about 10 days later. He was diagnosed with parainfluenza bronchitis. Two separate chest x-rays were both unremarkable. His blood work was unremarkable. Viral swab positive for parainfluenza but not RSV or COVID. He did do a 7 day course of doxycycline after the 1st ER visit. He has not albuterol inhaler. He receive Depo-Medrol in the Emergency Room on the 2nd visit. He did note a sharp rise in blood sugars for couple days but then they normalized. He still has not fullyrecovered. He has a cough intermittently but otherwise feels okay. In particular has no fever or shortness of breath. Notes some discomfort in the right shoulder area. Hard to hold anything at 90 abduction. He is able to get full range of motion in abduction bullous some discomfort. 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 Otherwise doing well. He has not had any recent difficulties with reflux. Scheduled for dental visit next month Patient Active Problem List Diagnosis MARION (obstructive sleep apnea) DJD (degenerative joint disease) Obesity, morbid (more than 100 lbs over ideal weight or BMI > 40) ([facility]) GERD (gastroesophageal reflux disease) HTN, goal below 130/80 History of colonic diverticulitis History of partial colectomy Tobacco use disorder Routine medical exam Type 2 diabetes mellitus with hemoglobin A1c goal of less than 7.0% ([facility]) Hyperlipidemia with target LDL less than 70 Current Outpatient Medications Medication Sig Dispense Refill loperamide (IMODIUM) 2 MG Capsule Take 1 Capsule by mouth in the morning. Aspirin 81 MG Oral Tablet Chewable Take 1 Tab by mouth daily. with food. 100 Tab 5 Multivitamin Adult Extra C Oral Tablet Chewable Take by mouth . OneTouch Delica Plus [id number] USE TO CHECK BLOOD SUGAR ONCE DAILY. 100 Each 3 metFORMIN HCl ER 500 MG Oral Tablet Extended Release 24 Hour (Glucophage XR) TAKE 4 TABLETS BY MOUTH DAILY 360 Tablet 2 OneTouch Verio In Vitro Strip (Glucose Blood) USE TO CHECK BLOOD SUGAR ONCE DAILY. 100 Strip 3 Rosuvastatin Calcium 5 MG Oral Tablet (Crestor) Take 1 Tablet by mouth in the morning. 90 Tablet 1 Lisinopril 10 MG Oral Tablet (Prinivil) TAKE 1/2 TABLET BY MOUTH DAILY 45 Tablet 1 Pantoprazole Sodium 40 MG Oral Tablet Delayed Release (Protonix) TAKE 1 TABLET BY MOUTH ONCE DAILY 90 Tablet 1 Benzonatate 100 MG Oral Capsule Take 1-2 Capsules by mouth 3 times a day as needed for Cough. 45 Capsule 1 No current facility-administered medications for this visit. Review of patient's allergies indicates: Allergen Reactions Lipitor [Atorvastatin] "Didn't feel right" Objective: There were no vitals taken for this visit. Physical Exam: CONST: alert, pleasant, no acute distress HEAD: normocephalic, atraumatic Eyes - PERRLA, EOM'I OROPHARYNX: clear, no swelling or erythema, moist CV: regular rate and rhythm, no murmur CHEST: Some scattered rhonchi in both lung bishop. ABD: soft, non tender, non diT: no edema, no joint swelling or deformities, stended, no masses or hepatosplenomegaly Extremity: He is able to obtain full abduction but he has some discomfort between about 60 to 100abduction. Internal rotation is significantly reduced. Strength at 90 abduction is 4/5 NEURO: AAOx3, no gross focal deficits, cerebellar signs normal, affect appropriate MENTAL STATUS: no evidence of thought disorder, no delusional thought, no evidence of paranoia, thought is non-tangential. SKIN: no rash or significant lesions ASSESSMENT/PLAN: Type 2 diabetes mellitus with hemoglobin A1c goal of less than 7.0% ([facility]) (Primary) - DIABETES FOOT EXAM - HEMOGLOBIN A1C; Future; Expected date: 03/24/2024 Continue the metformin ER 500 mg 4 tablets daily Screening for depression - DEPRESSION SCREENING PERFORMED Bronchitis, complicated - Benzonatate 100 MG Oral Capsule; Take 1-2 Capsules by mouth 3 times a day as needed for Cough. Rotator cuff tendinitis, right-discussed options of care. Decided on a course of nonsteroidal anti-inflammatory agent i.e. ibuprofen 200 mg, 2 or 3 tablets 3 times a day planning on doing this for about 10 days. Consider steroid injection if this does not help. I encouraged him to be as careful as possible with the maneuvering the hose as I suspect that is the cause of his Um tendonitis. Check-out note: Rtc for vaccine -shingles See again 6 months Haider Shaikh MD * Patricia Acosta LPN - 03/24/2024 10:58 AM EST Socks and Shoes Removed for Annual Diabetic Foot Screening RIGHT FOOT: No Reddened, Cracking, Or Open Areas Noted. RIGHT Dorsalis Pedis Pulse: Palpable RIGHT Posterior Tibial Pulse: Palpable RIGHT Monofilament:Patient reports feeling monofilament pressure on plantar surface of foot LEFT FOOT: No Reddened, Cracking or Open Areas Noted. LEFT Dorsalis Pedis Pulse: Palpable LEFT Posterior Tibial Pulse: Palpable LEFT Monofilament:Patient reports feeling monofilament pressure on plantar surface of foot Do you need diabetic shoes: No DM Foot Exam completed today. Provider aware. Patricia Acosta LPN documented in this encounter Nursing Notes * Patricia Acosta LPN - 03/24/2024 11:04 AM EST The patient has been properly identified by confirmation of name and date of . Chief Complaint Patient presents with Emergency Department Follow-Up Patient is here today for an ED follow up due to congestion, cough and overall not feeling well. States that he still is experiencing an ongoing cough but otherwise is feeling better, cough is a dry. Patient state he is having pain and discomfort in the right shoulder, ongoing for a couple of weeksand is agitated with certain movements. Has been using tylenol and ibuprofen for the pain with slight relief. documented in this encounter Plan of Treatment Upcoming Encounters Date Type Department Care Team (Late st Contact Info) Description 03/24/2024 1:40 PM EST Laboratory Laboratory, [facility] [address] [phone] [facility] [address] [id number] Type 2 diabetes mellitus with hemoglobin A1c goal of less than 7.0% (HCC); Hyperlipidemia with target LDL less than 70; Encounter for long-term (current) use of medications 04/04/2024 2:00 PM EST Nurse Only Ancillary Department, [facility] [address] [phone] Nurse [facility] [address] [id number] 09/23/2024 7:40 AM EDT Office Visit Family Practice, [facility] [address] [phone] Haider Shaikh MD [address] [id number] Pending Results Name Type Priority Associated Diagnoses Date /Time HEMOGLOBIN A1C Lab Routine Type 2 diabetes mellitus with hemoglobin A1c goal of less than 7.0% (HCC) 03/24/2024 12:11 PM EST Scheduled Orders Name Type Priority Associated Diagnoses Orde r Schedule HEMOGLOBIN A1C Lab Routine Type 2 diabetes mellitus with hemoglobin A1c goal of less than 7.0% (HCC) Expected: 03/24/2024 (Approximate), Expires: 03/24/2025 Scheduled Procedures Name Priority Associated Diagnoses Date/Ti me COLONOSCOPY FLEXIBLE PROXIMAL DIAGNOSTIC Recall Screen for colon cancer Health Maintenance Due Date Last Done Comments Cologuard 2010 Fecal Occult Blood Test 2010 Sigmoidoscopy 2010 Zoster Vaccines (2 of 2) 05/28/2023 04/02/2023 COVID-19 Vaccine ( - season) 2023 Influenza Vaccine (FLU shot) (#1) 2023 01/28/2020, 01/27/2019 Albumin/Creatinine Ratio 04/02/2024 024, 04/24/2022, 02/21/2021, Additional history exists GFR 04/02/2024 04/02/2023, 02/0 08/2022, 08/26/2021, Additional history exists HbA1c 06/02/2024 12/04/2023, [...] Declined After Education) Lipid Panel 04/02/2028 04/02/2023, 02/0 08/2022, 02/21/2021, Additional history exists DTap/Tdap Vaccines (3 [...] hemoglobin A1c goal of less than 7.0% (HCC)- Primary Screening for depression Bronchitis, complicated Bronchitis, not specified as acute or chronic Rotator cuff tendinitis, right Type 2 diabetes mellitus with hemoglobin A1c goal of less than 7.0% (HCC) Hyperlipidemia with target LDL less than 70 Other and unspecified hyperlipidemia Encounter for long-term (current) use of medications Encounter for long-term (current) use of other medications documented in this encounter Care Teams Portable Machine Sander Relationship Specialty Start Date End Date Haider Shaikh MD PCP - General Family Medicine 09/26/18 documented as of this encounter
--- OUTSIDE RECORDS SUMMARY | 2024-05-07 07:59 | External Medical Summary ---
Author Name Unknown Address Unknown Organization [id number]:[facility] [place] - [address] [facility] [address] Laboratory Report Ordering Provider Test Date Status JORGE GAMEZPEGGY 03/24/2024 12:11:58 Final Observation Date Value Abnormality Reference (Units ) Status HbA1C 03/24/2024 12:11:58 6.6 Above high normal 4. 0-5.6 (%) Final The use of HbA1c to monitor glycemic status is based on normal hemoglobin and HbA composition. This test should not be used in patients with abnormal hemoglobin that affects the half life of the red blood cell or the in vivo glycation rates. Glucose, estimated average 03/24/2024 12:11:58 143 Above high normal <126 (mg/dL) Tylor maldonado Performing Location [facility] [place] - [address] [facility] [address]
--- OUTSIDE RECORDS SUMMARY | 2024-05-07 07:59 | External Medical Summary ---
Author Name Unknown Address Unknown Organization [id number]:[facility]ATORY [facility] [place] - [address] [place] [address] Laboratory Report Ordering Provider Test Date Status PAVAN GAMEZ 03/24/2024 12:11:58 Final Observation Date Value Abnormality Reference (Units ) Status Triglyceride 03/24/2024 12:11:58 262 Above high normal <=174 (mg/dL) Final Triglyceride Reference Range s (mg/dL):
<150 Acceptable
150-174 Borderline high
175-499 High
>=500 Very high Cholesterol 03/24/2024 12:11:58 146 <200 (mg /dL) Final Total Cholesterol Reference Ranges (mg/dL):
<200 Desirable
200-239 Borderline high
>=240 High HDL 03/24/2024 12:11:58 30 Below low normal >39 (mg/dL) Final HDL Cholesterol Reference Ra nges (mg/dL):
>=60 High (Desirable)
<50 Low (Undesirable) For Females
<40 Low (Undesirable) For Males NON-HDL CHOLESTEROL 03/24/2024 12:11:58 116 <=159 (mg/dL) Final Non-HDL Cholesterol Referenc e Range (mg/dL):
<100 Target level for high risk ASCVD patient
<130 Optimal for general population
130-159 Near optimal for general population
160-189 Borderline High
190-219 High
>=220 Very High Performing Location LABORATORY [facility] - [address] [place] [address]
--- OUTSIDE RECORDS SUMMARY | 2024-05-07 07:59 | External Medical Summary ---
Author Name Unknown Address Unknown Organization [id number]:[facility] [place] - [address] [place] [address] Laboratory Report Ordering Provider Test Date Status PAVAN GAMEZ 03/24/2024 12:11:58 Final Observation Date Value Abnormality Reference (Units ) Status LDL, (direct) 03/24/2024 12:11:58 87 <=129 (mg/dL) Final LDL Cholesterol Reference Ra nges (mg/dL):
<70 Target level for high risk ASCVD patient
<100 Optimal for general population
100-129 Near optimal for general population
130-159 Borderline high
160-189 High
>=190 Very high Performing Location LABORATORY [facility] - [address] [place] [address]
--- NOTE | 2024-05-07 08:25 | Emergency Department Note ---
ED Provider Note History of Present Illness Chief Complaint: Cough Stated Complaint: COUGHING UP MUCUS,DIVERTICULITIS FLARE UP Time Seen by Provider: 05/07/24 08:10 Source: patient Mode of arrival: ambulatory Limitations: no limitations Patient is a 58-year-old male who presents to the emergency department with complaints of a dry cough for several weeks. Patient also notes that he is having some left lower quadrant abdominal pain and noticed some bright red streaking of blood in his stool. Patient states that he has a history of diverticulitis and believes he may be having a flareup. Patient denies any nausea, chest pain, or other complaints at this time. Home Medications Medication Instructions Recorded Confirmed Type lisinopril 10 mg tablet 5 mg PO QAM #30 tabs 09/24/18 05/07/24 History pantoprazole 40 mg tablet,delayed 40 mg PO QAM #30 tabs 09/24/18 05/07/24 History release aspirin 81 mg tablet,delayed 81 mg PO QAM 07/26/21 05/07/24 History release multivitamin 1 tab PO DAILY 08/29/22 05/07/24 History rosuvastatin 5 mg tablet 5 mg PO DAILY 08/29/22 05/07/24 History metformin 500 mg tablet,extended 2,000 mg PO DAILY 05/07/24 05/07/24 History release 24 hr omega 3 350 mg-dha 235 mg-epa 90 1 cap PO DAILY 05/07/24 05/07/24 History mg-fish oil 597 mg capsule,delay rel (Collyer-3) Allergies Allergy/AdvReac Type Severity Reaction Status Date / Time atorvastatin Allergy Intermediate "FELT LIKE Verified 05/07/24 09:51 LUMP IN STOMACH-PAINFUL" Latex2 -Systemic Allergic Allergy Severe HIVES Uncoded 05/07/24 09:51 Response Past Med/Surg History Problem List (Updated 05/07/24 @ 11:02 by Mica Tomas PA-C) RSV (respiratory syncytial virus infection) Acute diverticulitis Medical History Colon cancer screening Encounter for pre-operative examination Obstructive sleep apnea (adult) (pediatric) Vitamin D deficiency Ventral hernia Umbilical hernia Ulnar neuropathy at elbow of left upper extremity Tubular adenoma of colon Solitary pulmonary nodule Prediabetes Obstructive sleep apnea Morbidly obese Internal hemorrhoids Hypertension Hyperlipidemia Hepatic steatosis Gastroesophageal reflux disease Chronic osteoarthritis Chronic gastritis BMI 45.0-49.9, adult Work related injury Patellar dislocation Knee sprain Hand laceration Hand laceration Osteoarthritis Herniated intervertebral disc DM type 2 (diabetes mellitus, type 2) HLD (hyperlipidemia) HTN (hypertension) Sleep apnea CPAP IBS (irritable bowel syndrome) Diverticulosis Surgical History History of carpal tunnel surgery of right wrist History of wisdom tooth extraction History of inguinal hernia repair Rt x 3 History of knee surgery Rt History of bowel resection hx diverticulitis History of colonoscopy Family History Father Colon cancer Coronary heart disease Cerebral artery occlusion Other No family history of adverse response to anesthesia Social History Smoking Status: Never smoker Tobacco Type: Smokeless Tobacco (Dip or Chew) Second Hand Exposure: No; Do You Dip or Chew Tobacco: Yes; Tobacco Cessation Education Requested by Patient: No Hx Alcohol Use: Yes Alcohol type: beer, wine and hard liquor Hx Substance Use: No Preferred Language: Turkish Communication Ability: Effective Photographic Technician Required: No Beliefs That Will Affect Care: None Current Living Situation: Alone Other Information That Helps Us Care for You: No Feels Safe at Home: Yes Safety Concerns: Feels Safe At This Time Assistive Devices: Glasses Physical Exam Vital Signs Vital Signs - 24 hr 05/07/24 07:53 05/07/24 08:05 05/07/24 08:15 Temperature 36.6 C Temperature Source Oral Pulse Rate 83 79 Pulse Rate [Apical] 76 Pulse Rate from SpO2 Sensor Pulse Rhythm Regular Pulse Strength Normal Respiratory Rate 20 18 20 Respiratory Effort / Characteristics Non-Labored Respiratory Depth Normal Respiratory Pattern Regular Blood Pressure 171/92 H Blood Pressure [Right Arm] 139/81 Blood Pressure Mean 118 Blood Pressure Mean [Right Arm] 100 Pulse Oximetry 95 97 96 Oxygen Delivery Method Room Air Room Air Room Air Sepsis Recent Fever Within 48 Hours No Sepsis New/Unexplained Change in Mental Status N/A Sepsis Action Taken by Nursing No Action Required 05/07/24 08:34 05/07/24 08:34 05/07/24 08:36 Temperature Temperature Source Pulse Rate 78 Pulse Rate [Apical] Pulse Rate from SpO2 Sensor 80 Pulse Rhythm Pulse Strength Respiratory Rate 14 Respiratory Effort / Characteristics Respiratory Depth Respiratory Pattern Blood Pressure 139/81 139/81 Blood Pressure [Right Arm] Blood Pressure Mean 99 99 Blood Pressure Mean [Right Arm] Pulse Oximetry 96 Oxygen Delivery Method Sepsis Recent Fever Within 48 Hours Sepsis New/Unexplained Change in Mental Status Sepsis Action Taken by Nursing 05/07/24 08:42 05/07/24 08:44 05/07/24 08:51 Temperature Temperature Source Pulse Rate 77 81 72 Pulse Rate [Apical] Pulse Rate from SpO2 Sensor 78 69 Pulse Rhythm Pulse Strength Respiratory Rate 21 23 Respiratory Effort / Characteristics Respiratory Depth Respiratory Pattern Blood Pressure Blood Pressure [Right Arm] Blood Pressure Mean Blood Pressure Mean [Right Arm] Pulse Oximetry 96 92 Oxygen Delivery Method Sepsis Recent Fever Within 48 Hours Sepsis New/Unexplained Change in Mental Status Sepsis Action Taken by Nursing 05/07/24 08:54 05/07/24 09:00 05/07/24 09:03 Temperature Temperature Source Pulse Rate 70 72 Pulse Rate [Apical] Pulse Rate from SpO2 Sensor 70 69 Pulse Rhythm Pulse Strength Respiratory Rate 23 25 H Respiratory Effort / Characteristics Respiratory Depth Respiratory Pattern Blood Pressure 128/70 Blood Pressure [Right Arm] Blood Pressure Mean 80 Blood Pressure Mean [Right Arm] Pulse Oximetry 94 93 Oxygen Delivery Method Sepsis Recent Fever Within 48 Hours Sepsis New/Unexplained Change in Mental Status Sepsis Action Taken by Nursing 05/07/24 09:06 05/07/24 10:00 05/07/24 10:06 Temperature Temperature Source Pulse Rate 71 71 Pulse Rate [Apical] Pulse Rate from SpO2 Sensor 71 71 Pulse Rhythm Pulse Strength Respiratory Rate 26 H 24 Respiratory Effort / Characteristics Respiratory Depth Respiratory Pattern Blood Pressure 113/67 Blood Pressure [Right Arm] Blood Pressure Mean 82 Blood Pressure Mean [Right Arm] Pulse Oximetry 93 95 Oxygen Delivery Method Sepsis Recent Fever Within 48 Hours Sepsis New/Unexplained Change in Mental Status Sepsis Action Taken by Nursing 05/07/24 10:21 Temperature Temperature Source Pulse Rate 79 Pulse Rate [Apical] Pulse Rate from SpO2 Sensor 79 Pulse Rhythm Pulse Strength Respiratory Rate 21 Respiratory Effort / Characteristics Respiratory Depth Respiratory Pattern Blood Pressure Blood Pressure [Right Arm] Blood Pressure Mean Blood Pressure Mean [Right Arm] Pulse Oximetry 97 Oxygen Delivery Method Sepsis Recent Fever Within 48 Hours Sepsis New/Unexplained Change in Mental Status Sepsis Action Taken by Nursing VITAL SIGNS - Vital signs and nursing notes were reviewed. GENERAL -58-year-old male appearing their stated age, who is in no acute distress. Communicates well with provider and answers questions appropriately. HEAD - Normocephalic, Atraumatic. No Zurita's Sign or Raccoon's Eyes. EYES - PERRL with EOMI bilaterally. Sclera anicteric. Conjunctiva pink and moist with no injection noted. NECK - Neck with FROM. Supple to palpation. No lymphadenopathy noted. LUNGS - Chest wall symmetric without accessory muscle use, intercostals retractions, or central cyanosis. Normal vesicular breath sounds CTA B/L. No wheezes, rales, or rhonchi appreciated. CARDIAC - RRR with S1/S2. No murmur, rubs, or gallops appreciated. ABDOMEN- Soft and mildly tender in the left lower quadrant, pain increases with palpation. Bowel sounds present throughout. No palpable masses or ascites. EXTREMITIES - No edema present. +5/5 strength noted in UE/LE bilaterally. NEUROLOGIC -Sensory intact to light touch throughout. PSYCH - A&Ox3 and cooperates fully with examiner. Pt is very pleasant and interacts well with examiner Course Administered Medications Insulin Aspart (Insulin Aspart Per Unit Charge) 0 units SC ACHS GODWIN Stop: 06/06/24 12:47 Last Admin: 05/07/24 16:58 Dose: 1 units Documented By: ANNELIESE Co-signed By: RASHID Admin: 05/07/24 13:54 Dose: 2 units Documented By: STANISLAW Co-signed By: AMARILIS Metronidazole (Metronidazole 500 Mg Tab) 500 mg PO TID GODWIN; Protocol Stop: 05/17/24 13:59 Last Admin: 05/07/24 13:54 Dose: 500 mg Documented By: STANISLAW Discontinued Medications Metronidazole (Flagyl) 500 mg in 100 mls @ 100 mls/hr IV NOW STA; Protocol Stop: 05/07/24 11:06 Last Infusion: 05/07/24 10:54 Dose: Infused Documented By: Admin: 05/07/24 10:29 Dose: 100 mls/hr Documented By: STANISLAW Ceftriaxone Sodium (Rocephin) 2,000 mg in 50 mls @ 100 mls/hr IV NOW STA Stop: 05/07/24 10:36 Last Infusion: 05/07/24 10:54 Dose: Infused Documented By: Admin: 05/07/24 10:17 Dose: 100 mls/hr Documented By: STANISLAW Ioversol (Optiray 320 100ml) 94 ml IV ONCE ONE Stop: 05/07/24 09:24 Last Admin: 05/07/24 09:24 Dose: 94 ml Documented By: MERLINE Medical Decision Making Differential Diagnosis Differential diagnoses includes influenza, COVID, RSV, rhinovirus, gastritis, gastroenteritis, IBS, small bowel obstruction, pancreatitis, peritonitis, constipation, abdominal abcess, diverticulitis, among others. Medical Records Attestation: I reviewed the patient's medical records. Home Medications was personally reviewed by nj Laboratory Data Attestation: I reviewed the patient's lab results. 05/07/24 08:34 05/07/24 08:34 Lab Results 05/07/24 05/07/24 Range/Units 08:34 09:57 WBC 9.60 (4.8-10.8) K/ul RBC 4.87 (4.70-6.10) M/uL Hgb 13.9 L (14.0-18.0) g/dl Hct 40.8 L (42.0-52.0) % MCV 83.8 (80.0-100.0) fL MCH 28.5 (25.0-34.0) pg MCHC 34.1 (32.0-36.0) g/dL RDW Std Deviation 44.2 (36.4-46.3) fL RDW Coeff of Alejandro 14.4 (11.5-14.5) % Plt Count 264 (130-400) K/uL MPV 9.8 (9.4-12.4) fL Immature Gran % (Auto) 0.8 % Neut % (Auto) 72.3 % Lymph % (Auto) 13.9 % Titus % (Auto) 10.1 % Eos % (Auto) 2.3 % Baso % (Auto) 0.6 % Neut # (Auto) 6.94 H (1.40-6.50) K/uL Lymph # (Auto) 1.33 (1.20-3.40) K/uL Titus # (Auto) 0.97 H (0.11-0.59) K/uL Eos # (Auto) 0.22 (0.00-0.50) K/uL Baso # (Auto) 0.06 (0.00-0.20) K/uL Immature Gran # (Auto) 0.08 (0.01-0.20) K/uL PT 10.9 (9.0-12.0) Seconds INR 1.0 (0.9-1.1) APTT 31 (21-31) Seconds PTT Ratio 1.2 Sodium 136 (136-145) mmol/L Potassium 3.7 (3.5-5.1) mmol/L Chloride 102 (98-107) mmol/L Carbon Dioxide 28 (21-32) mmol/L Anion Gap 6 (3-11) BUN 15 (6-23) mg/dl Creatinine 0.84 (0.6-1.4) mg/dl Est Cr Clr Drug Dosing 141.2 ml/min eGFR 101.08 BUN/Creatinine Ratio 17.9 (10-20) Glucose 134 H (70-99(Fasting)) mg/dl Calcium 9.6 (8.6-10.3) mg/dl Total Bilirubin 0.8 (0.2-1.0) mg/dl AST 20 (13-39) U/L ALT 27 (7-52) U/L Alkaline Phosphatase 66 (34-104) U/L Total Protein 7.8 (6.0-8.3) gm/dl Albumin 4.2 (3.4-5.0) gm/dl Globulin 3.6 (2.5-4.0) gm/dl Albumin/Globulin Ratio 1.2 (0.9-2) Urine Color Yellow Urine Appearance Clear (Clear) Urine pH 5.5 (4.5-7.5) Ur Specific [place] 1.022 (1.000-1.030) Urine Protein Negative (Negative) Urine Glucose (UA) Negative (Negative) Urine Ketones Trace H (Negative) Urine Blood Negative (Negative) Urine Nitrite Negative (Negative) Urine Bilirubin Negative (Negative) Urine Urobilinogen Negative (Negative) Ur Leukocyte Esterase Negative (Negative) Adenovirus (PCR) Not Detected (NotDetected) B. pertussis DNA (PCR) Not Detected (NotDetected) B.parapertussis DNA PCR Not Detected (NotDetected) C. pneumoniae DNA (PCR) Not Detected (NotDetected) Coronavirus OC43 (PCR) Not Detected (NotDetected) Coronavirus HKU1 (PCR) Not Detected (NotDetected) Coronavirus 229E (PCR) Not Detected (NotDetected) SARS-CoV-2 (PCR) Not Detected (NotDetected) Coronavirus NL63 (PCR) Not Detected (NotDetected) Human Metapneumovir PCR Not Detected (NotDetected) Influenza Type A (PCR) Not Detected (NotDetected) Influenza Type B (PCR) Not Detected (NotDetected) M. pneumoniae (PCR) Not Detected (NotDetected) Parainfluenza 1 (PCR) Not Detected (NotDetected) Parainfluenza 2 (PCR) Not Detected (NotDetected) Parainfluenza 3 (PCR) Not Detected (NotDetected) Parainfluenza 4 (PCR) Not Detected (NotDetected) RSV (PCR) DETECTED A (NotDetected) Entero/Rhino (PCR) Not Detected (NotDetected) Imaging Data Radiologist's Impression: Abdomen/Pelvis CT 05/07/24 08:15 CT OF THE ABDOMEN AND PELVIS WITH CONTRAST CLINICAL HISTORY: Abdominal pain. History of diverticulitis. COMPARISON STUDY: CT of the abdomen and pelvis August 29, 2022. TECHNIQUE: Following IV administration of 94 mL of Optiray, axial images of the abdomen and pelvis were obtained from the lung bases to the proximal femurs. Images were reviewed in the axial, sagittal, and coronal planes. IV contrast was administered without complication. Automated exposure control was utilized for the study. A dose lowering technique was utilized adhering to the principles of ALARA. FINDINGS: No pneumatosis, free air or portal venous gas is present. There is hepatic steatosis and mild hepatomegaly. There are no hepatic lesions. The spleen, adrenal glands, kidneys and pancreas are unremarkable. There is no hydronephrosis. No biliary or pancreatic ductal dilatation is present. Subcentimeter right renal lesion is too small to characterize but unchanged since prior CT. This is probably benign. There is colonic diverticulosis. There is an inflamed diverticulum of the distal descending colon. Mild associated inflammation and colonic wall thickening is present. There is no free air. No abscess is present. No additional sites of inflammation are identified. The appendix is normal. There is no abdominal or pelvic lymphadenopathy. Major vasculature is patent. IMPRESSION: 1. Acute diverticulitis of the distal descending colon. Mild inflammation and colonic wall thickening. No free air or abscess. 2. Hepatic steatosis. ACT 112: Negative or not required by law. Electronically signed by: Sumanth Tabor M.D. 05/07/2024 9:[address] 05/07/24 08:15 CT OF THE CHEST WITHOUT IV CONTRAST CLINICAL HISTORY: Dyspnea. COMPARISON STUDY: Chest CT November 29, 2011. Chest radiograph March 03, 2024. CT DOSE: 2467.2 mGy.cm TECHNIQUE: Axial images of the chest were obtained without IV contrast. Images were reviewed in the axial, sagittal, and coronal planes. IV contrast was not administered for this examination. Automated exposure control was utilized for the study. A dose lowering technique was utilized adhering to the principles of ALARA. FINDINGS: A prominent subcarinal lymph node is unchanged. No enlarged axillary, mediastinal or hilar lymph nodes are present. There is no pneumothorax or pleural effusion. Subpleural groundglass left lower lobe opacity represents atelectasis. There is mild bronchial wall thickening within the left lower lobe. No consolidation is identified to suggest pneumonia. Central airways are patent. There are no fractures within the bony thorax. No pneumothorax or pleural effusion is present. Size of the heart is normal. There is no pericardial effusion. Hepatic steatosis is incidentally noted. IMPRESSION: 1. No consolidation to suggest pneumonia. Subpleural left lower lobe opacities consistent with atelectasis. Mild bronchial wall thickening within the left lower lobe. 2. Hepatic steatosis. ACT 112: Negative or not required by law. Electronically signed by: Sumanth Tabor M.D. 05/07/2024 9:50 AM MDM Narrative Patient is a 58-year-old male who presents to the emergency department with complaints of a dry cough for several weeks. Patient also notes that he is having some left lower quadrant abdominal pain and noticed some bright red streaking of blood in his stool. Patient states that he has a history of diverticulitis and believes he may be having a flareup. Patient denies any nausea, chest pain, or other complaints at this time. Patient was evaluated by myself and findings were noted in physical exam above. Patient was ordered IV placement, lab work, EKG, upper respiratory viral panel, urinalysis, and a CT of the chest and abdomen pelvis. Patient's lab work resulted relatively unremarkable. Patient's white count was 9.60. Patient had mildly low hemoglobin of 13.9 and hematocrit of 40.8. Patient had no significant electrolyte imbalance. Patient also had an upper respiratory panel completed and resulted positive for RSV. I discussed these findings with the patient and the patient verbalized understanding. I discussed with the patient that his persistent dry cough was likely related to RSV. Patient verbalized understanding. Patient had a CT of the abdomen pelvis and a CT of the chest. Patient CT of the chest was interpreted by radiology to show no consolidation to suggest pneumonia. Patient did have some noted atelectasis. Patient did have a CT of the abdomen and pelvis which showed acute diverticulitis of the distal descending colon. There is some mild inflammation and colonic wall thickening noted. No free air or abscess noted. I discussed these findings with the patient as well who verbalized understanding. Patient states that he felt that his symptoms were consistent with diverticulitis. Patient states that when he has had diverticulitis in the past he gets significantly worse very quickly and he does not feel comfortable going home, the patient would prefer to stay in the hospital as he does have a history of worsening diverticulitis that has resulted in colon resection. I reached out to the [facility] hospitalist group and spoke with RICARDO Nino. I gave Mica a full report on the patient including chief complaint, current status and the results of his labwork and imaging. Mica agreed to accept the patient under their service for admission. Please refer to [facility] hospitalists group's documentation for further evaluation and management of this patient. Discharge Plan Visit Data Chief Complaint: Cough Stated Complaint: COUGHING UP MUCUS,DIVERTICULITIS FLARE UP ED Provider: Jacqueline Quintanilla ED Midlevel Provider: Rhona Del Toro Patient Disposition: Admitted As Inpatient Discharge Instructions Interventions: ED Discharge Assessment Last Done: 05/07/24 12:48
[2024-05-07 08:57] LABS: Basophils # (auto) 0.06 K/uL (0.00-0.20); Basophils % (auto) 0.6 %; Eosinophils # (auto) 0.22 K/uL (0.00-0.50); Eosinophils % (auto) 2.3 %; Hematocrit (blood only) 40.8 % (42.0-52.0); Hemoglobin 13.9 g/dl (14.0-18.0); Immature Granulocytes # (auto) 0.08 K/uL (0.01-0.20); Immature Granulocytes % (auto) 0.8 %; Lymphocytes # (auto) 1.33 K/uL (1.20-3.40); Lymphocytes % (auto) 13.9 %; Mean Corpuscular Hemoglobin 28.5 pg (25.0-34.0); Mean Corpuscular Hgb Conc 34.1 g/dL (32.0-36.0); Mean Corpuscular Volume 83.8 fL (80.0-100.0); Mean Platelet Volume 9.8 fL (9.4-12.4); Monocytes # (auto) 0.97 K/uL (0.11-0.59); Monocytes % (auto) 10.1 %; Neutrophils # (auto) 6.94 K/uL (1.40-6.50); Neutrophils % (auto) 72.3 %; Platelet Count 264 K/uL (130-400); RDW Coefficient of Variation 14.4 % (11.5-14.5); RDW Standard Deviation 44.2 fL (36.4-46.3); Red Blood Count 4.87 M/uL (4.70-6.10)
[2024-05-07 09:16] LABS: Albumin Globulin Ratio 1.2 (0.9-2); Albumin Level 4.2 gm/dl (3.4-5.0); BUN Creatinine Ratio 17.9 (10-20); Bilirubin,Total 0.8 mg/dl (0.2-1.0); Calcium 9.6 mg/dl (8.6-10.3); Creatinine Clr Calc Pharmacy 141.2 ml/min; Globulin 3.6 gm/dl (2.5-4.0); Potassium 3.7 mmol/L (3.5-5.1); Total Protein 7.8 gm/dl (6.0-8.3)
[2024-05-07] MEDS: OPTIRAY 320 100ml IV ONE (09:24)
[2024-05-07 09:34] LABS: Partial Thromboplastin Ratio 1.2; Partial Thromboplastin Time 31 Seconds (21-31); Prothrombin Time 10.9 Seconds (9.0-12.0)
[2024-05-07 09:41] LABS: Adenovirus PCR Not Detected (NotDetected); Bordetella parapertussis PCR Not Detected (NotDetected); Bordetella pertussis PCR Not Detected (NotDetected); Chlamydia pneumoniae PCR Not Detected (NotDetected); Coronavirus 229E PCR Not Detected (NotDetected); Coronavirus CoV-2 (COVID19)PCR Not Detected (NotDetected); Coronavirus HKU1 PCR Not Detected (NotDetected); Coronavirus NL63 PCR Not Detected (NotDetected); Coronavirus OC43PCR Not Detected (NotDetected); Human Metapneumovirus PCR Not Detected (NotDetected); Influenza A PCR Not Detected (NotDetected); Influenza B PCR Not Detected (NotDetected); Mycoplasma pneumoniae PCR Not Detected (NotDetected); Parainfluenza Virus 1 PCR Not Detected (NotDetected); Parainfluenza Virus 2 PCR Not Detected (NotDetected); Parainfluenza Virus 3 PCR Not Detected (NotDetected); Parainfluenza Virus 4 PCR Not Detected (NotDetected); Respiratory Syncytial VirusPCR DETECTED (NotDetected); Rhinovirus/Enterovirus PCR Not Detected (NotDetected)
--- NOTE | 2024-05-07 09:52 | CT Scan Report ---
CT OF THE CHEST WITHOUT IV CONTRAST CLINICAL HISTORY: Dyspnea. COMPARISON STUDY: Chest CT November 29, 2011. Chest radiograph March 03, 2024. CT DOSE: 2467.2 mGy.cm TECHNIQUE: Axial images of the chest were obtained without IV contrast. Images were reviewed in the axial, sagittal, and coronal planes. IV contrast was not administered for this examination. Automat ed exposure control was utilized for the study. A dose lowering technique was utilized adhering to t he principles of ALARA. FINDINGS: A prominent subcarinal lymph node is unchanged. No enlarged axillary, mediastinal or hilar lymph nodes are present. There is no pneumothorax or pleural effusion. Subpleural groundglass left l ower lobe opacity represents atelectasis. There is mild bronchial wall thickening within the left low er lobe. No consolidation is identified to suggest pneumonia. Central airways are patent. There are n o fractures within the bony thorax. No pneumothorax or pleural effusion is present. Size of the heart is normal. There is no pericardial effusion. Hepatic steatosis is incidentally noted. IMPRESSION: 1. No consolidation to suggest pneumonia. Subpleural left lower lobe opacities consistent with atelec tasis. Mild bronchial wall thickening within the left lower lobe. 2. Hepatic steatosis. ACT 112: Negative or not required by law. Electronically signed by: Sumanth Tabor M.D. 05/07/2024 9:50 AM
--- NOTE | 2024-05-07 09:57 | CT Scan Report ---
CT OF THE ABDOMEN AND PELVIS WITH CONTRAST CLINICAL HISTORY: Abdominal pain. History of diverticulitis. COMPARISON STUDY: CT of the abdomen and pelvis August 29, 2022. TECHNIQUE: Following IV administration of 94 mL of Optiray, axial images of the abdomen and pelvis we re obtained from the lung bases to the proximal femurs. Images were reviewed in the axial, sagittal, and coronal planes. IV contrast was administered without complication. Automated exposure control wa s utilized for the study. A dose lowering technique was utilized adhering to the principles of ALARA . FINDINGS: No pneumatosis, free air or portal venous gas is present. There is hepatic steatosis and mi ld hepatomegaly. There are no hepatic lesions. The spleen, adrenal glands, kidneys and pancreas are u nremarkable. There is no hydronephrosis. No biliary or pancreatic ductal dilatation is present. Subce ntimeter right renal lesion is too small to characterize but unchanged since prior CT. This is probab ly benign. There is colonic diverticulosis. There is an inflamed diverticulum of the distal descendin g colon. Mild associated inflammation and colonic wall thickening is present. There is no free air. N o abscess is present. No additional sites of inflammation are identified. The appendix is normal. The re is no abdominal or pelvic lymphadenopathy. Major vasculature is patent. IMPRESSION: 1. Acute diverticulitis of the distal descending colon. Mild inflammation and colonic wall thickening . No free air or abscess. 2. Hepatic steatosis. ACT 112: Negative or not required by law. Electronically signed by: Sumanth Tabor M.D. 05/07/2024 9:55 AM
[2024-05-07] MEDS: cefTRIAXone SODIUM 2,000 MG/50 ML BAG IV STA (10:17)
[2024-05-07] MEDS: metroNIDAZOLE 500 MG/100 ML BAG IV STA (10:29)
[2024-05-07 10:39] LABS: Appearance Urine Clear (Clear); Bilirubin Urine Negative (Negative); Blood Urine Negative (Negative); Color Urine Yellow; Glucose Urine UA Negative (Negative); Ketones Urine Trace (Negative); Leukocyte Esterase Urine Negative (Negative); Nitrite Urine Negative (Negative); Protein Urine Negative (Negative); Specific Gravity Urine 1.022 (1.000-1.030); Urobilinogen Urine Negative (Negative); pH Urine 5.5 (4.5-7.5)
--- NOTE | 2024-05-07 11:06 | History & Physical Report ---
<Statement entered by Ryan Allen, DO - 05/07/24 13:05> I have seen and examined the patient and have discussed the case with the advance practice provider. I have reviewed the advanced practitioner's documentation, and I agree with, and take responsibility for that plan of care. Patient reports feeling some improvement in his abdominal pain here now after receiving some medications. Abdomen soft, no guarding, no rigidity, mild left lower quadrant tenderness Further plan of care as outlined below I spent a total of 10 minutes coordinating, documenting, and providing care for this patient excluding time spent by another provider/QHP. Date of Service May 07, 2024 Assessment & Plan (1) Acute diverticulitis: (2) RSV (respiratory syncytial virus infection): (3) DM type 2 (diabetes mellitus, type 2): (4) HTN (hypertension): Plan This is a 58-year-old male who has a significant past medical history of T2DM, HTN, HLD, MARION, diverticulosis, history of partial colon resection who presents to ED secondary to left lower quadrant abdominal pain for 4 to 5 days. #Acute Diverticulitis #LLQ Abdominal pain admit to med/surg pt with hx of diverticulitis in past resulting in bowel resection place on clear liquid diet Oral Cipro/Flagyl, + probiotic encourage hydration If sx improving can likely discharge home tomorrow on oral regimen #Viral URI 2/2 RSV supportive care, lungs clear prn anti tussives #T2DM: A1C 6.6 in march, hold metformin, ISS per protocol #HTN: chronic, stable, continue lisinopril #HLD: chronic, stable continue statin #MARION: continue Cpap at HS #Morbid obesity, BMI 43.1, encourage diet, lifestyle modifications #DVT ppx: SQ Lovenox FULL CODE PCP: [facility] Dispo: admit to medical Pt was seen and examined in collaboration with Dr. Allen, please see addendum I spent a total of 40 minutes coordinating, documenting and providing care for this patient excluding time spent in the performance of separately billed services or time spent by another provider/QHP. History of Present Illness Chief Complaint: LLQ Abd pain for 4-5 days. Primary Care Provider: Haider Shaikh MD This is a 58-year-old male who has a significant past medical history of T2DM, HTN, HLD, MARION, diverticulosis, history of partial colon resection who presents t o ED secondary to left lower quadrant abdominal pain for 4 to 5 days. He also elicits that he has been having a cough for a similar duration. He states the pain is not the left lower quadrant, is nonradiating, waxes and wanes in severity from a dull ache to a sharp stab. He has history of diverticulitis in the past requiring partial colon resection. He states this feels similar to previous episodes of diverticulitis. He also has associated nausea and stool changes with foul-smelling stool, diarrhea and occasional blood-streaked stool. He reports the blood is maroon in color and very minimal. Over the last 4 to 5 days he has tried to limit intake and switching to more soft foods like mashed potatoes and hotdogs without the bun. He also reports feeling feverish 4 to 5 days ago, postnasal drip, hoarseness and a dry cough. 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 He has always very tired. He did not take any of his morning medications. In ED patient remained hemodynamically stable. His CBC and CMP was generally unremarkable. His respiratory bio fire was positive for RSV. CT scan of abdomen pelvis revealed acute sigmoid diverticulitis with mild inflammation and colonic wall thickening. He received IV ceftriaxone and Flagyl in ED. Patient is hesitant to be discharged home given prior history. Allergies Allergy/AdvReac Type Severity Reaction Status Date / Time atorvastatin Allergy Intermediate "FELT LIKE Verified 05/07/24 09:51 LUMP IN STOMACH-PAINFUL" Latex2 -Systemic Allergic Allergy Severe HIVES Uncoded 05/07/24 09:51 Response Home Medications Medication Instructions Recorded Confirmed Type lisinopril 10 mg tablet 5 mg PO QAM #30 tabs 09/24/18 05/07/24 History pantoprazole 40 mg tablet,delayed 40 mg PO QAM #30 tabs 09/24/18 05/07/24 History release aspirin 81 mg tablet,delayed 81 mg PO QAM 07/26/21 05/07/24 History release multivitamin 1 tab PO DAILY 08/29/22 05/07/24 History rosuvastatin 5 mg tablet 5 mg PO DAILY 08/29/22 05/07/24 History metformin 500 mg tablet,extended 2,000 mg PO DAILY 05/07/24 05/07/24 History release 24 hr omega 3 350 mg-dha 235 mg-epa 90 1 cap PO DAILY 05/07/24 05/07/24 History mg-fish oil 597 mg capsule,delay rel ([place]-3) Past Med/Surg History Problem List (Updated 05/07/24 @ 11:02 by Mica Tomas PA-C) RSV (respiratory syncytial virus infection) Acute diverticulitis Medical History Colon cancer screening Encounter for pre-operative examination Obstructive sleep apnea (adult) (pediatric) Vitamin D deficiency Ventral hernia Umbilical hernia Ulnar neuropathy at elbow of left upper extremity Tubular adenoma of colon Solitary pulmonary nodule Prediabetes Obstructive sleep apnea Morbidly obese Internal hemorrhoids Hypertension Hyperlipidemia Hepatic steatosis Gastroesophageal reflux disease Chronic osteoarthritis Chronic gastritis BMI 45.0-49.9, adult Work related injury Patellar dislocation Knee sprain Hand laceration Hand laceration Osteoarthritis Herniated intervertebral disc DM type 2 (diabetes mellitus, type 2) HLD (hyperlipidemia) HTN (hypertension) Sleep apnea CPAP IBS (irritable bowel syndrome) Diverticulosis Surgical History History of carpal tunnel surgery of right wrist History of wisdom tooth extraction History of inguinal hernia repair Rt x 3 History of knee surgery Rt History of bowel resection hx diverticulitis History of colonoscopy Family History Father Colon cancer Coronary heart disease Cerebral artery occlusion Other No family history of adverse response to anesthesia Social History Smoking Status: Never smoker Second Hand Exposure: No; Do You Dip or Chew Tobacco: Yes; Hx Alcohol Use: Yes Hx Substance Use: No Preferred Language: Taiwanese Communication Ability: Effective Machine Cage Maker Required: No Beliefs That Will Affect Care: None Current Living Situation: Family Feels Safe at Home: Yes Assistive Devices: Glasses Review of Systems Review of Systems: All systems reviewed & are unremarkable except as noted in HPI & below Physical Exam Physical Exam: Constitutional: WD/WN, obese, M, vitals as above, NAD, sitting up in bed, pleasant, conversing easily Head: Normocephalic, Atraumatic, unkempt facial hair Eyes: PERRL, conjunctivae normal, anicteric sclerae ENMT: external ear and nose normal, oropharynx normal poor dentition Neck: trachea midline, no thyromegaly normal visual inspection Respiratory: normal respiratory effort, lungs clear to auscultation, no wheeze, rales, rhonchi. Normal insp/exp effort, no accessory muscle use Cardiovascular: RRR, no murmur, no edema Vessels: no JVD or carotid bruit Chest: normal inspection of chest Abdomen: protuberant abd, soft, NT, umbilical hernia with distal scar, TTP LLQ, no rebound/guarding Musculoskeletal: no cyanosis or clubbing, arom x 4 Skin: no rashes, warm and dry normal turgor Neurologic: no face palsy, no dysarthria CN's II-XI intact bilaterally and moves all extremities Psychiatric: A+Ox3, euthymic affect Lymphatic: no cervical or axillary lymphadenopathy : deferred Results & Data Results & Data Vital Signs (Past 12 Hours) Vital Signs Temp Pulse Pulse Resp BP BP Pulse Ox 05/07/24 10:00 113/67 05/07/24 09:06 71 26 H 93 05/07/24 09:03 72 25 H 93 05/07/24 09:00 128/70 05/07/24 08:54 70 23 94 05/07/24 08:51 72 23 92 05/07/24 08:44 81 05/07/24 08:42 77 21 96 05/07/24 08:36 78 14 96 05/07/24 08:34 139/81 05/07/24 08:34 139/81 05/07/24 08:15 79 20 96 05/07/24 08:05 36.6 C 83 18 171/92 H 97 05/07/24 07:53 76 20 139/81 95 O2 Del Method 05/07/24 10:00 05/07/24 09:06 05/07/24 09:03 05/07/24 09:00 05/07/24 08:54 05/07/24 08:51 05/07/24 08:44 05/07/24 08:42 05/07/24 08:36 05/07/24 08:34 05/07/24 08:34 05/07/24 08:15 Room Air 05/07/24 08:05 Room Air 05/07/24 07:53 Room Air Laboratory Results I have independently reviewed and interpreted patient's admitting labs including CBC, CMP, PTT, PT/INR, resp biofire, UA. Diagnostic Findings Abdomen/Pelvis CT 05/07/24 08:15 CT OF THE ABDOMEN AND PELVIS WITH CONTRAST CLINICAL HISTORY: Abdominal pain. History of diverticulitis. COMPARISON STUDY: CT of the abdomen and pelvis August 29, 2022. TECHNIQUE: Following IV administration of 94 mL of Optiray, axial images of the abdomen and pelvis were obtained from the lung bases to the proximal femurs. Images were reviewed in the axial, sagittal, and coronal planes. IV contrast was administered without complication. Automated exposure control was utilized for the study. A dose lowering technique was utilized adhering to the principles of ALARA. FINDINGS: No pneumatosis, free air or portal venous gas is present. There is hepatic steatosis and mild hepatomegaly. There are no hepatic lesions. The spleen, adrenal glands, kidneys and pancreas are unremarkable. There is no hydronephrosis. No biliary or pancreatic ductal dilatation is present. Subcentimeter right renal lesion is too small to characterize but unchanged since prior CT. This is probably benign. There is colonic diverticulosis. There is an inflamed diverticulum of the distal descending colon. Mild associated inflammation and colonic wall thickening is present. There is no free air. No abscess is present. No additional sites of inflammation are identified. The appendix is normal. There is no abdominal or pelvic lymphadenopathy. Major vasculature is patent. IMPRESSION: 1. Acute diverticulitis of the distal descending colon. Mild inflammation and colonic wall thickening. No free air or abscess. 2. Hepatic steatosis. ACT 112: Negative or not required by law. Electronically signed by: Sumanth Tabor M.D. 05/07/2024 9:[address] 05/07/24 08:15 CT OF THE CHEST WITHOUT IV CONTRAST CLINICAL HISTORY: Dyspnea. COMPARISON STUDY: Chest CT November 29, 2011. Chest radiograph March 03, 2024. CT DOSE: 2467.2 mGy.cm TECHNIQUE: Axial images of the chest were obtained without IV contrast. Images were reviewed in the axial, sagittal, and coronal planes. IV contrast was not administered for this examination. Automated exposure control was utilized for the study. A dose lowering technique was utilized adhering to the principles of ALARA. FINDINGS: A prominent subcarinal lymph node is unchanged. No enlarged axillary, mediastinal or hilar lymph nodes are present. There is no pneumothorax or pleural effusion. Subpleural groundglass left lower lobe opacity represents atelectasis. There is mild bronchial wall thickening within the left lower lobe. No consolidation is identified to suggest pneumonia. Central airways are patent. There are no fractures within the bony thorax. No pneumothorax or pleural effusion is present. Size of the heart is normal. There is no pericardial effusion. Hepatic steatosis is incidentally noted. IMPRESSION: 1. No consolidation to suggest pneumonia. Subpleural left lower lobe opacities consistent with atelectasis. Mild bronchial wall thickening within the left lower lobe. 2. Hepatic steatosis. ACT 112: Negative or not required by law. Electronically signed by: Sumanth Tabor M.D. 05/07/2024 9:50 AM Medications Administered Medication List Metronidazole (Flagyl) 500 mg in 100 mls @ 100 mls/hr IV NOW STA; Protocol Stop: 05/07/24 11:06 Last Infusion: 05/07/24 10:54 Dose: Infused Documented By: Admin: 05/07/24 10:29 Dose: 100 mls/hr Documented By: STANISLAW Discontinued Medications Ceftriaxone Sodium (Rocephin) 2,000 mg in 50 mls @ 100 mls/hr IV NOW STA Stop: 05/07/24 10:36 Last Infusion: 05/07/24 10:54 Dose: Infused Documented By: Admin: 05/07/24 10:17 Dose: 100 mls/hr Documented By: STANISLAW Ioversol (Optiray 320 100ml) 94 ml IV ONCE ONE Stop: 05/07/24 09:24 Last Admin: 05/07/24 09:24 Dose: 94 ml Documented By: MERLINE ECG Additional Comments: I have independently reviewed and interpreted patient's admitting EKG which revealed: NSR 81bpm, qtc 432ms no st t wave changes COVID-19 Results Results COVID-19 Adm Lab Results: RBC 4.87 M/uL (4.70-6.10) 05/07/24 WBC 9.60 K/ul (4.8-10.8) 05/07/24 Hgb 13.9 g/dl (14.0-18.0) L 05/07/24 Hct 40.8 % (42.0-52.0) L 05/07/24 Plt Count 264 K/uL (130-400) 05/07/24 Neutrophils (%) (Auto) 72.3 % 05/07/24 Lymphocytes (%) (Auto) 13.9 % 05/07/24 Monocytes # (Auto) 0.97 K/uL (0.11-0.59) H 05/07/24 Eosinophils # (Auto) 0.22 K/uL (0.00-0.50) 05/07/24 Immature Granulocyte % (Auto) 0.8 % 05/07/24 Neutrophils # (Auto) 6.94 K/uL (1.40-6.50) H 05/07/24 Lymphocytes # (Auto) 1.33 K/uL (1.20-3.40) 05/07/24 Monocytes # (Auto) 0.97 K/uL (0.11-0.59) H 05/07/24 Eosinophils # (Auto) 0.22 K/uL (0.00-0.50) 05/07/24 Basophils # (Auto) 0.06 K/uL (0.00-0.20) 05/07/24 Immature Granulocyte # (Auto) 0.08 K/uL (0.01-0.20) 5 Na 136 mmol/L (136-145) 05/07/24 K 3.7 mmol/L (3.5-5.1) 05/07/24 Cl 102 mmol/L (98-107) 05/07/24 CO2 28 mmol/L (21-32) 05/07/24 Anion Gap 6 (3-11) 05/07/24 BUN 15 mg/dl (6-23) 05/07/24 Creatinine 0.84 mg/dl (0.6-1.4) 05/07/24 BUN/Creatinine Ratio 17.9 (10-20) 05/07/24 Glucose Level 134 mg/dl (70-99(Fasting)) H 05/07/24 Ca 9.6 mg/dl (8.6-10.3) 05/07/24 Total Bilirubin 0.8 mg/dl (0.2-1.0) 05/07/24 AST/SGOT 20 U/L (13-39) 05/07/24 ALT/SGPT 27 U/L (7-52) 05/07/24 Alkaline Phosphatase 66 U/L (34-104) 05/07/24 Total Protein 7.8 gm/dl (6.0-8.3) 05/07/24 Albumin 4.2 gm/dl (3.4-5.0) 05/07/24 Globulin 3.6 gm/dl (2.5-4.0) 05/07/24 Albumin/Globulin Ratio 1.2 (0.9-2) 05/07/24 PTT 31 Seconds (21-31) 05/07/24 INR 1.0 (0.9-1.1) 05/07/24 Adenovirus (PCR) Not Detected (NotDetected) 05/07/24 B. parapertussis DNA (PCR) Not Detected (NotDetected) 04/19 12/11 B. pertussis DNA (PCR) Not Detected (NotDetected) 05/07/24 C. pneumoniae DNA (PCR) Not Detected (NotDetected) 5 Coronavirus Type OC43 (PCR) Not Detected (NotDetected) Coronavirus Type HKU1 (PCR) Not Detected (NotDetected) Coronavirus Type 229E (PCR) Not Detected (NotDetected) COVID-19 PCR Not Detected (NotDetected) 05/07/24 Coronavirus Type NL63 (PCR) Not Detected (NotDetected) Human Metapneumovirus (PCR) Not Detected (NotDetected) Influenza Virus Type A (PCR) Not Detected (NotDetected) Influenza Virus Type B (PCR) Not Detected (NotDetected) M. pneumoniae (PCR) Not Detected (NotDetected) 05/07/24 Parainfluenza Type 1 (PCR) Not Detected (NotDetected) 04/19 12/11 Parainfluenza Type 2 (PCR) Not Detected (NotDetected) 04/19 12/11 Parainfluenza Type 3 (PCR) Not Detected (NotDetected) 04/19 12/11 Parainfluenza Type 4 (PCR) Not Detected (NotDetected) 04/19 12/11 RSV (PCR) DETECTED (NotDetected) A 05/07/24 Enterovirus/Rhinovirus (PCR) Not Detected (NotDetected) Chest CT 05/07/24 Code Status & VTE Plan Code Status FULL CODE VTE Prophylaxis Plan VTE Prophylaxis will be ordered: Yes
--- NOTE | 2024-05-07 11:57 | Electrocardiogram Report ---
Test Reason : Blood Pressure : */* mmHG Vent. Rate : 81 BPM Atrial Rate : 81 BPM P-R Int : 136 ms QRS Dur : 90 ms QT Int : 372 ms P-R-T Axes : 68 39 34 degrees QTcB Int : 432 ms Normal sinus rhythm Normal ECG When compared with ECG of 15-Mar-2024 20:20, No significant change was found Confirmed by Danny Dias ([id number]) on 05/07/2024 11:57:08 AM Referred By: Confirmed By: Danny Dias
[2024-05-07] MEDS ORDERED: ONDANSETRON INJ 2 MG/ML 2 ML VIAL IV PRN (12:48)
[2024-05-07] MEDS ORDERED: KETOROLAC TROMETHAMINE 15 MG/ML VIAL IV PRN (12:48)
[2024-05-07] MEDS ORDERED: DEXTROSE 50% 50 ML SYRINGE IV PRN (12:48)
[2024-05-07] MEDS ORDERED: traMADol HCL 50 MG TABLET PO PRN (12:48)
[2024-05-07] MEDS ORDERED: GLUCOSE 10 TAB/TUBE PO PRN (12:48)
[2024-05-07] MEDS ORDERED: GLUCOSE 40% GEL 15 GM TUBE PO PRN (12:48)
[2024-05-07] MEDS ORDERED: GLUCAGON FOR INJ 1 MG VIAL SQ PRN (12:48)
[2024-05-07] MEDS ORDERED: CARBOHYDRATES FOR HYPOGLYCEMIA PO PRN (12:48)
[2024-05-07] MEDS ORDERED: BENZONATATE 100 MG CAPSULE PO PRN (12:48)
[2024-05-07] MEDS ORDERED: FAMOTIDINE 20 MG TAB PO PRN (12:48)
[2024-05-07] MEDS: INSULIN ASPART PER UNIT CHARGE SC SCH (13:54)
[2024-05-07] MEDS: metroNIDAZOLE 500 MG TAB PO SCH (13:54)
[2024-05-07] MEDS ORDERED: MELATONIN 3 MG TAB PO PRN (21:00)
[2024-05-07] MEDS: ENOXAPARIN INJ 40 MG/0.4 ML SYR SQ SCH (21:58)
[2024-05-07] MEDS: CIPROFLOXACIN 500 MG TAB PO SCH (22:02)
[2024-05-08] MEDS: ACETAMINOPHEN 325 MG TAB PO PRN (05:55)
[2024-05-08 05:56] LABS: Mean Corpuscular Hemoglobin 29.2 pg (25.0-34.0); Mean Corpuscular Hgb Conc 34.1 g/dL (32.0-36.0); Mean Corpuscular Volume 85.6 fL (80.0-100.0); Mean Platelet Volume 9.6 fL (9.4-12.4); Platelet Count 268 K/uL (130-400); RDW Coefficient of Variation 14.2 % (11.5-14.5); RDW Standard Deviation 44.5 fL (36.4-46.3); Red Blood Count 4.79 M/uL (4.70-6.10)
[2024-05-08 06:07] LABS: BUN Creatinine Ratio 14.9 (10-20); Calcium 9.2 mg/dl (8.6-10.3); Creatinine Clr Calc Pharmacy 132.4 ml/min; Potassium 3.9 mmol/L (3.5-5.1)
[2024-05-08] MEDS: ADVANCED PROBIOTIC 625 MG CAPSULE PO SCH (07:40)
[2024-05-08] MEDS: ASPIRIN 81 MG ECTAB PO SCH (07:40)
[2024-05-08] MEDS: ROSUVASTATIN CALCIUM 5 MG TAB PO SCH (07:40)
--- NOTE | 2024-05-08 07:40 | Hospitalist Progress Note ---
Date of Service May 08, 2024 Assessment & Plan (1) Acute diverticulitis: (2) RSV (respiratory syncytial virus infection): (3) DM type 2 (diabetes mellitus, type 2): (4) HTN (hypertension): Plan This is a 58-year-old male who has a significant past medical history of T2DM, HTN, HLD, MARION, diverticulosis, history of partial colon resection who presents to ED secondary to left lower quadrant abdominal pain for 4 to 5 days. Acute Diverticulitis LLQ Abdominal pain admit to med/surg pt with hx of diverticulitis in past resulting in bowel resection CTAP: No free air or abscess. Acute diverticulitis of the distal descending colon. Mild inflammation and colonic wall thickening. place on clear liquid diet; advancing today as tolerated Oral Cipro/Flagyl, + probiotic; will continue on discharge Encourage PO hydration Surgical consult given PMH of resection who stated no surgical intervention; o/p colonoscopy in 6-8weeks Viral URI: Secondary to RSV supportive care, lungs clear prn anti tussives T2DM: A1C 6.6 in march, hold metformin, ISS per protocol HTN: chronic, stable, continue lisinopril HLD: chronic, stable continue statin MARION: continue Cpap at HS Morbid obesity, BMI 43.1, encourage diet, lifestyle modifications DVT ppx: SQ Lovenox FULL CODE PCP: [facility] Dispo: admit to medical I spent a total of 51 minutes coordinating, documenting and providing care for this patient excluding time spent in the performance of separately billed services or time spent by another provider/QHP. Admission and Anticipated Discharge Date Admission Date: May 07, 2024 Supervising Physician Co-Signing Physician Notes Pt was seen and examined by myself, Leilani Burden MD on the day of service. Care was coordinated with JOVANY Dougherty. 58yoM currently being treated for acute diverticulitis as well as an RSV infection. history of bowel resection abdomen tender on exam especially in left lower quadrant Patient not currently septic at this time, No leukocytosis or fevers. CT abdomen pelvis noting no concern for perforation or abscess. General surgery consulted. Continue Cipro and Flagyl. advance diet as tolerated Supportive care for RSV infection, not currently requiring any oxygen supplementation. continue to monitor likely discharge in the a.m. Otherwise as above. I spent a total [id number] coordinating, documenting, and providing care for this patient excluding time spent in the performance of separately billed services Subjective Pt sitting in his bedside chair in no apparent distress Pt reports 2/10 LLQ abdominal pain with minimal radiation to flank Denies SAPP, dizziness, Chest pain, SOB, palpitations, hematochezia, N/V/D, recent falls. See plan of care for further details. Review of Systems Review of Systems: Neuro: (-) Falls, trauma, slurred speech HEENT: (-) SAPP, dizziness, dysphagia, visual or auditory changes CV: (-) CP, palpitations, swelling Resp: (-) SOB GI: (-) appetite changes, N/V/D, bowel changes : (-) urinary changes Skin: (-) rashes Psych: (-) anxiety, depression Physical Exam Physical Exam: Neuro: AAOx4, PERRLA, no aphagia, memory changes, CNII-XII grossly intact HEENT: head normocephalic, moist mucus membranes CV: S1/S2, (-) M/G/R, (-) edema, cap refill < 3 seconds Resp: Lungs CTA in all bishop. On RA GI: Abdomen ND, Ax4 bowel sounds, Abdomen pain with palpation LLQ (-) CVA tenderness Musculoskeletal: 5/5 B/L UE strength, 5/5 B/L LE strength. No gait disturbance Skin: (-) rashes , (-) erythema. Psych: euthymic mood Results & Data Results & Data Vital Signs (Past 12 Hours) Vital Signs Temp Pulse Resp BP Pulse Ox O2 Del Method 05/08/24 07:12 36.7 C 66 16 121/71 95 Room Air 05/07/24 20:20 36.5 C 69 18 138/76 97 Room Air 05/07/24 19:56 Room Air Laboratory Results Short CBC 05/08/24 Range/Units 05:25 WBC 8.80 (4.8-10.8) K/ul Hgb 14.0 (14.0-18.0) g/dl Hct 41.0 L (42.0-52.0) % Plt Count 268 (130-400) K/uL BMP 05/08/24 05:25 Sodium 137 Potassium 3.9 Chloride 103 Carbon Dioxide 27 BUN 13 Creatinine 0.87 Glucose 117 H Calcium 9.2
[2024-05-08] MEDS: lisinopril 5 MG TAB PO SCH (07:41)
[2024-05-08] MEDS: PANTOprazole 40 MG TAB PO SCH (07:41)
[2024-05-08] MEDS: OMEGA-3 (PURIFIED FISH OIL) 1 GM CAP PO SCH (07:41)
--- NOTE | 2024-05-08 12:57 | Surgery Consultation ---
<Statement entered by Hari Mart, - 05/08/24 22:31> This case has been discussed with the surgical PA. Date of Consultation May 08, 2024 Assessment & Plan (1) Acute diverticulitis: Patient with c/o on going abdominal discomfort in LLQ. He developed loose foul smelling stool and noticed it to be tinged with blood and was feeling lousy with chills, cough, congestion and runny nose. The patient tested positive for RSV and underwent a CT scan of the abd/pelvis which is showing concern for acute diverticulitis of the descending colon, with colonic wall thickening without free air or abscess. WBC wnl, VSS , afebrile, obese abd , TTP LLQ soft The patient has been tolerating a full liquid diet Continue IV cipro/flagyl while in house Patient will need oral ABX on d/c Outpatient colonoscopy in 6-8 weeks no acute surgical intervention indicated cont. care per primary addendum: pt is on oral cipro/flagyl not IV , ok to continue this. History of Present Illness Requesting Physician: JOVANY Daniel Attending Physician: Leilani Burden MD History of Present Illness Patient is a pleasant 58 yo male with PMH diverticulitis, Diabetes 2, HTN, HLD, GERD, that presented to [facility] ER yesterday with c/o on going abdominal discomfort and cough. Patient reports abdominal pain is in LLQ and he thought it was associated with something he ate. He developed loose foul smelling stool and noticed it to be tinged with blood and was feeling lousy with chills, cough, congestion and runny nose. He reports a history of diverticulitis 12-15 years ago with perforation and he was treated with IV antibiotics and bowel rest. He then later did an elective bowel resection however does not remember which part of his colon was removed. He has not had any documented flare ups until this episode however does report that he has had intermittent abdominal pain and would put himself on a soft diet and the pain subsided. The patient tested positive for RSV and underwent a CT scan of the abd/pelvis which is showing concern for acute diverticulitis of the descending colon, with colonic wall thickening without free air or abscess. The patient has been tolerating a full liquid diet and is on IV cipro/flagyl. He has had one BM since admission. He denies cp, sob. Last colonoscopy was 2 years ago. Allergies Allergy/AdvReac Type Severity Reaction Status Date / Time atorvastatin Allergy Intermediate "FELT LIKE Verified 05/07/24 09:51 LUMP IN STOMACH-PAINFUL" Latex2 -Systemic Allergic Allergy Severe HIVES Uncoded 05/07/24 09:51 Response Home Medications Medication Instructions Recorded Confirmed Type lisinopril 10 mg tablet 5 mg PO QAM #30 tabs 09/24/18 05/07/24 History pantoprazole 40 mg tablet,delayed 40 mg PO QAM #30 tabs 09/24/18 05/07/24 History release aspirin 81 mg tablet,delayed 81 mg PO QAM 07/26/21 05/07/24 History release multivitamin 1 tab PO DAILY 08/29/22 05/07/24 History rosuvastatin 5 mg tablet 5 mg PO DAILY 08/29/22 05/07/24 History metformin 500 mg tablet,extended 2,000 mg PO DAILY 05/07/24 05/07/24 History release 24 hr omega 3 350 mg-dha 235 mg-epa 90 1 cap PO DAILY 05/07/24 05/07/24 History mg-fish oil 597 mg capsule,delay rel (Delmont-3) Patient History Medical History Colon cancer screening Encounter for pre-operative examination Obstructive sleep apnea (adult) (pediatric) Vitamin D deficiency Ventral hernia Umbilical hernia Ulnar neuropathy at elbow of left upper extremity Tubular adenoma of colon Solitary pulmonary nodule Prediabetes Obstructive sleep apnea Morbidly obese Internal hemorrhoids Hypertension Hyperlipidemia Hepatic steatosis Gastroesophageal reflux disease Chronic osteoarthritis Chronic gastritis BMI 45.0-49.9, adult Work related injury Patellar dislocation Knee sprain Hand laceration Hand laceration Osteoarthritis Herniated intervertebral disc DM type 2 (diabetes mellitus, type 2) HLD (hyperlipidemia) HTN (hypertension) Sleep apnea CPAP IBS (irritable bowel syndrome) Diverticulosis Surgical History History of carpal tunnel surgery of right wrist History of wisdom tooth extraction History of inguinal hernia repair Rt x 3 History of knee surgery Rt History of bowel resection hx diverticulitis History of colonoscopy Family History Father Colon cancer Coronary heart disease Cerebral artery occlusion Other No family history of adverse response to anesthesia Social History Smoking Status: Never smoker Tobacco Type: Smokeless Tobacco (Dip or Chew) Second Hand Exposure: No; Do You Dip or Chew Tobacco: Yes; Tobacco Cessation Education Requested by Patient: No Hx Alcohol Use: Yes Alcohol type: beer, wine and hard liquor Hx Substance Use: No Preferred Language: Puerto Rican Communication Ability: Effective Bar Captain Required: No Beliefs That Will Affect Care: None Current Living Situation: Alone Other Information That Helps Us Care for You: No Feels Safe at Home: Yes Safety Concerns: Feels Safe At This Time Assistive Devices: None Review of Systems Constitutional: + chills; no fever Ear, Nose, Mouth, Throat: + nasal discharge and + post nasal drip Respiratory: + cough; no dyspnea Cardiovascular: no chest pain Gastrointestinal: + abdominal pain, + change in bowel habi ts and + diarrhea/loose stools; no nausea and no vomiting Genitourinary: no dysuria Integumentary: no rash Psychiatric: no confusion Physical Exam Constitutional: cooperative and comfortable; no acute distress Respiratory: normal respiratory effort and able to speak in complete sentences; no respiratory distress Cardiovascular: Rate/Rhythm: regular rate Gastrointestinal (Abdomen): Inspection/Auscultation: + significant pannus; abdomen not distended Percussion/Palpation: + abdomen tender (LLQ) and abdomen soft Musculoskeletal: no cyanosis or clubbing, extremities motor strength 5/5 Psychiatric: A+Ox3, euthymic affect Results & Data Vital Signs (Past 12 Hours) Vital Signs Temp Pulse Resp BP Pulse Ox O2 Del Method 05/08/24 07:35 Room Air 05/08/24 07:12 98.1 F 66 16 121/71 95 Room Air Diagnostic Findings [facility] [place] [phone] CT Scan Report Patient: SOSA PATE Admit Date: 05/07/24 MR#: [id number] Address1: [address] [place] [address] Acct ID:[id number] Address2: Date: 1965 [facility] Zip: [place] [address] Age: 58 Location: ED Sex: M Room/Bed: Att Phy: Diagnosis: COUGHING UP MUCUS,DIVERTICULITIS FLARE UP Priya Phy: Haider Shaikh MD Service Date: 05/07/24 [facility] Phy: Interpreting Phy: Sumanth Tabor MDAdmit Phy: Ordering Phy: Rhona Del Toro CRNP cc: ~ CT OF THE ABDOMEN AND PELVIS WITH CONTRAST CLINICAL HISTORY: Abdominal pain. History of diverticulitis. COMPARISON STUDY: CT of the abdomen and pelvis August 29, 2022. TECHNIQUE: Following IV administration of 94 mL of Optiray, axial images of the abdomen and pelvis were obtained from the lung bases to the proximal femurs. Domonique ges were reviewed in the axial, sagittal, and coronal planes. IV contrast was administered without complication. Automated exposure control was utilized for the study. A dose lowering technique was utilized adhering to the principles of ALARA. FINDINGS: No pneumatosis, free air or portal venous gas is present. There is hepatic steatosis and mild hepatomegaly. There are no hepatic lesions. The s pleen, adrenal glands, kidneys and pancreas are unremarkable. There is no hydronephrosis. No biliary or pancreatic ductal dilatation is present. Subcentimeter right renal lesion is too small to characterize but unchanged since prior CT. This is probably benign. There is colonic diverticulosis. There is an inflamed diverticulum of the distal descending colon. Mild associated inflammation and colonic wall thickening is present. There is no free air. No abscess is present. No additional sites of inflammation are identified. The appendix is normal. There is no abdominal or pelvic lymphadenopathy. Major vasculature is patent. IMPRESSION: 1. Acute diverticulitis of the distal descending colon. Mild inflammation and colonic wall thickening. No free air or abscess. 2. Hepatic steatosis. ACT 112: Negative or not required by law. Electronically signed by: Sumanth Tabor M.D. 05/07/2024 9:55 AM Dictated: 05/07/24 0935 Transcribed: 05/07/24 0936 Results CBC w Diff Results: RBC 4.79 M/uL (4.70-6.10) 05/08/24 WBC 8.80 K/ul (4.8-10.8) 05/08/24 Hgb 14.0 g/dl (14.0-18.0) 05/08/24 Hct 41.0 % (42.0-52.0) L 05/08/24 MCV 85.6 fL (80.0-100.0) 05/08/24 MCH 29.2 pg (25.0-34.0) 05/08/24 MCHC 34.1 g/dL (32.0-36.0) 05/08/24 RDW Standard Deviation 44.5 fL (36.4-46.3) 05/08/24 RDW Coefficient of Variation 14.2 % (11.5-14.5) 05/08/24 Plt Count 268 K/uL (130-400) 05/08/24 MPV 9.6 fL (9.4-12.4) 05/08/24 Neutrophils (%) (Auto) 72.3 % 05/07/24 Lymphocytes (%) (Auto) 13.9 % 05/07/24 Monocytes # (Auto) 0.97 K/uL (0.11-0.59) H 05/07/24 Eosinophils # (Auto) 0.22 K/uL (0.00-0.50) 05/07/24 Immature Granulocyte % (Auto) 0.8 % 05/07/24 Neutrophils # (Auto) 6.94 K/uL (1.40-6.50) H 05/07/24 Lymphocytes # (Auto) 1.33 K/uL (1.20-3.40) 05/07/24 Monocytes # (Auto) 0.97 K/uL (0.11-0.59) H 05/07/24 Eosinophils # (Auto) 0.22 K/uL (0.00-0.50) 05/07/24 Basophils # (Auto) 0.06 K/uL (0.00-0.20) 05/07/24 Immature Granulocyte # (Auto) 0.08 K/uL (0.01-0.20) 5 PG Care Time/CCT Total # of Minutes Spent Total Time Spent with Patient: Total time spent is greater than 50% in coordination of care (as documented) at patient's floor/unit and/or counseling patient: Coding Level of Care Code 54668 IN/OBS CONSULT LVL 2,35M Diagnoses Acute diverticulitis K57.92
[2024-05-09 07:18] VITALS: BP 129/64; PULSE 64; RESP 16; TEMP 98.2; O2SAT 96
--- NOTE | 2024-05-09 07:21 | Discharge Summary ---
Date of Service May 09, 2024 Admission HPI Per Admitting Provider This is a 58-year-old male who has a significant past medical history of T2DM, HTN, HLD, MARION, diverticulosis, history of partial colon resection who presents to ED secondary to left lower quadrant abdominal pain for 4 to 5 days. He also elicits that he has been having a cough for a similar duration. He states the pain is not the left lower quadrant, is nonradiating, waxes and wanes in severity from a dull ache to a sharp stab. He has history of diverticulitis in the past requiring partial colon resection. He states this feels similar to previous episodes of diverticulitis. He also has associated nausea and stool changes with foul-smelling stool, diarrhea and occasional blood-streaked stool. He reports the blood is maroon in color and very minimal. Over the last 4 to 5 days he has tried to limit intake and switching to more soft foods like mashed potatoes and hotdogs without the bun. He also reports feeling feverish 4 to 5 days ago, postnasal drip, hoarseness and a dry cough. 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 He has always very tired. He did not take any of his morning medications. In ED patient remained hemodynamically stable. His CBC and CMP was generally unremarkable. His respiratory bio fire was positive for RSV. CT scan of abdomen pelvis revealed acute sigmoid diverticulitis with mild inflammation and colonic wall thickening. He received IV ceftriaxone and Flagyl in ED. Patient is hesitant to be discharged home given prior history. Admission Exam Per Admitting Provider Constitutional: WD/WN, obese, M, vitals as above, NAD, sitting up in bed, pleasant, conversing easily Head: Normocephalic, Atraumatic, unkempt facial hair Eyes: PERRL, conjunctivae normal, anicteric sclerae ENMT: external ear and nose normal, oropharynx normal poor dentition Neck: trachea midline, no thyromegaly normal visual inspection Respiratory: normal respiratory effort, lungs clear to auscultation, no wheeze, rales, rhonchi. Normal insp/exp effort, no accessory muscle use Cardiovascular: RRR, no murmur, no edema Vessels: no JVD or carotid bruit Chest: normal inspection of chest Abdomen: protuberant abd, soft, NT, umbilical hernia with distal scar, TTP LLQ, no rebound/guarding Musculoskeletal: no cyanosis or clubbing, arom x 4 Skin: no rashes, warm and dry normal turgor Neurologic: no face palsy, no dysarthria CN's II-XI intact bilaterally and moves all extremities Psychiatric: A+Ox3, euthymic affect Lymphatic: no cervical or axillary lymphadenopathy : deferred Principal Diagnosis acute diverticulitis Discharge Exam Neuro: AAOx4, PERRLA, no aphagia, memory changes, CNII-XII grossly intact HEENT: head normocephalic, moist mucus membranes CV: S1/S2, (-) M/G/R, (-) edema, cap refill < 3 seconds Resp: Lungs CTA in all bishop. On RA GI: Abdomen ND, Ax4 bowel sounds, Abdomen pain with palpation LLQ (-) CVA tenderness Musculoskeletal: 5/5 B/L UE strength, 5/5 B/L LE strength. No gait disturbance Skin: (-) rashes , (-) erythema. Psych: euthymic mood Discharge Data Allergies Allergy/AdvReac Type Severity Reaction Status Date / Time atorvastatin Allergy Intermediate "FELT LIKE Verified 05/07/24 09:51 LUMP IN STOMACH-PAINFUL" Latex2 -Systemic Allergic Allergy Severe HIVES Uncoded 05/07/24 09:51 Response Consultations 05/07/24 10:16 ED Decision to Admit Stat 05/08/24 11:18 Consult General Surgery Routine Ordered Studies 1. May 07: Abdomen/Pelvis CT: Acute diverticulitis of the distal descending colon. Mild inflammation and colonic wall thickening. No free air or abscess. Hepatic steatosis. 2. May 07: Chest CT: IMPRESSION: 1. No consolidation to suggest pneumonia. Subpleural left lower lobe opacities consistent with atelectasis. Mild bronchial wall thickening within the left lower lobe. Hospital Course (1) Acute diverticulitis: (2) RSV (respiratory syncytial virus infection): (3) DM type 2 (diabetes mellitus, type 2): (4) HTN (hypertension): Plan Mr. Lawson is a 58-year-old male who has a significant past medical history of T2DM, HTN, HLD, MARION, diverticulosis, history of partial colon resection who presents to ED secondary to left lower quadrant abdominal pain for 4 to 5 days. No leukocytosis was noted; his WBC was 8.08. An abdominal and pelvic CT was obtained with the following results: Acute diverticulitis of the distal descending colon. Mild inflammation and colonic wall thickening. No free air or abscess. He was started on oral Cipro and Flagyl and initially started on a clear liquid diet which he was able to advance without complication. General surgery was consulted given his history of colon resection and it was indicated that no surgical intervention was necessary; rather they recommended an outpatient colonoscopy within 6-8 weeks of acute resolution of his symptoms. Incidentally, he was found to test positive for RSV and was treated conservati vely for this. He was deemed stable for discharge and recommended to follow up as an outpatient. Total Time Total Time Spent Total Time Spent (In Minutes): I spent a total of 48 minutes coordinating, documenting and providing care for this patient excluding time spent in the performance of separately billed services or time spent by another provider/QHP. Discharge Plan Discharge Items Patient Disposition: Home - Self-Care Reason For Visit: COUGHING UP MUCUS,DIVERTICULITIS FLARE UP Discharge Diagnosis: Acute Diverticulitis Condition on Discharge: Good Activity: Resume your previous activity Non-emergency contact: Primary Care Provider and Fiber Artist Call non-emergency contact if: you have any medication questions, your pain is worsening, your pain is unusual for you and your temperature is above 101 Follow-up/Referrals: Haider Shaikh MD [Primary Care Provider] - (Date & Time 05/14/2024 3:00 PM Provider: Haider Shaikh MD [facility] ) Diet: Carb Consistent or DM2 Addtl Attending Provider Instructions: Everardo Varner presented to the [facility] with complaints of ongoing abdominal discomfort. You indicated that you had started to develop foul smelling stool and noticed that it was tinged with blood. You also indicated that you were having upper respiratory symptoms including cough, running nose, congestion and fatigue. In the ED you tested positive for RSV. Additionally, you underwent a CT scan of the abdomen/pelvis which was concerning for acute diverticulitis of the descending colon, with colonic wall thickening without free air or abscess. The blood work that we obtained did not indicate infection. We started you on two oral antibiotics called Ciprofloxacin and Flagyl. We thought given your history of a partial bowel resection that it would be beneficial to see the general surgery team while here. It was recommended that you continue the oral antibiotics that you are taking and recommend having an outpatient colonoscopy in 6-8 weeks once your infection has resolved. They did not feel any surgical intervention was warranted. Patient with c/o on going abdominal discomfort in LLQ. He developed loose foul smelling stool and noticed it to be tinged with blood and was feeling lousy with chills, cough, congestion and runny nose. The patient tested positive for RSV and underwent a CT scan of your abdomen and pelvis which is showing concern for acute diverticulitis of the descending colon, with colonic wall thickening without free air or abscess. Upon examination and discussion with you this morning, you do not have an elevated white blood cell count and your pain has improved. MEDICATION CHANGES: You will be discharged on three new medications: 1. Ciprofloxacin 500 mg by mouth twice daily x 8 days; starting with your evening dose on 05/09 and your last dose being in the morning on Wednesday 05/17. 2. Flagyl 500 mg by mouth twice daily x 8 days; starting with your evening dose on 05/09 and your last dose being in the morning on Wednesday 05/17. 3. Probiotic; please take one daily and complete one week after completion of antibiotics. You last dose should be Wednesday 05/24. 4. We discussed taking Mucinex for cough expectorant and you indicated preference obtaining this OTC. 5. Please take Tylenol 500 mg by mouth up to every eight hours as needed not to exceed 4 grams in a 24 hour period if you have pain SUMMARY OF TEST RESULTS: 1. May 07: Abdomen/Pelvis CT: Acute diverticulitis of the distal descending colon. Mild inflammation and colonic wall thickening. No free air or abscess. Hepatic steatosis. 2. May 07: Chest CT: IMPRESSION: 1. No consolidation to suggest pneumonia. Subpleural left lower lobe opacities consistent with atelectasis. Mild bronchial wall thickening within the left lower lobe. RECOMMENDATIONS FOR FOLLOW-UP: 1. PCP: 05/14/2024 3:00 PM Provider: Haider Shaikh MD @ [facility] 2. GI: Will arrange a follow up with you directly for consideration of having an outpatient colonoscopy in 6-8 weeks once your infection is controlled. OTHER INSTRUCTIONS: Seek medical attention if you have: * temperature above 101 * chest pain or trouble breathing * abdominal pain, nausea, vomiting * diarrhea, dark stools or bloody stools * any unanswered questions or concerns Call 911 if symptoms are severe. Please take good care of yourself. It has been a pleasure taking care of you. Please take care of yourself. If you have any questions regarding your recent hospitalization please contact [facility] and request Aureliano Alonso @ [phone]. Pending Studies at Discharge: No Stand-Alone Forms: My [facility], Smoking Cessation Medications and DC Order Prescriptions: New metronidazole 500 mg Tablet 500 mg PO BID 8 Days Qty: 16 0RF ciprofloxacin HCl 500 mg Tablet 500 mg PO BID 8 Days Qty: 16 0RF Advanced Probiotic 625 mg (10 billion cell) Capsule 1 cap PO DAILY Qty: 14 0RF Continued lisinopril 10 mg tablet 5 mg PO QAM Qty: 30 pantoprazole 40 mg tablet,delayed release (DR/EC) 40 mg PO QAM Qty: 30 aspirin 81 mg Tablet,Delayed Release (Dr/Ec) 81 mg PO QAM multivitamin Tablet 1 tab PO DAILY rosuvastatin 5 mg Tablet 5 mg PO DAILY metformin 500 mg tablet extended release 24 hr 2,000 mg PO DAILY Cromona-3 350 mg-235 mg- 90 mg-597 mg Capsule,Delayed Release(Dr/Ec) 1 cap PO DAILY Discharge Orders: Discharge Order (Routine); Ordered 05/09/24 Ordered By: Jerica Reid/Other Patient Handouts: RSV (Respiratory Syncytial Virus), Diverticulitis Dc Admission Data Admit Date/Time: 05/07/24 10:27 Attending Provider: Leilani Burden Admit Provider: Ryan Allen Primary Care Provider: Haider Shaikh Other Providers: Ryan Allen; Hari Mart Other Interventions: Discharge Summary Assessment (RN) Last Done: 05/09/24 09:41 Supervising Physician Co-Signing Physician Notes Pt was seen and examined by myself, Leilani Burden MD on the day of service. Care was coordinated with JOVANY Dougherty. 58yoM currently being treated for acute diverticulitis as well as an RSV infection. history of bowel resection abdomen tender on exam especially in left lower quadrant Patient not currently septic at this time, No leukocytosis or fevers. CT abdomen pelvis noting no concern for perforation or abscess. General surgery consulted, appreciate recs. Continue Cipro and Flagyl on discharge. Diet was advanced as tolerated Supportive care for RSV infection, not currently requiring any oxygen supplementation. Stable for discharge with close pcp followup Otherwise as above. I spent a total [id number] coordinating, documenting, and providing care for this patient excluding time spent in the performance of separately billed services
[2024-05-09 09:46] LABS: Hematocrit (blood only) 43.2 % (42.0-52.0); Hemoglobin 14.6 g/dl (14.0-18.0); Mean Corpuscular Hemoglobin 28.7 pg (25.0-34.0); Mean Corpuscular Hgb Conc 33.8 g/dL (32.0-36.0); Mean Corpuscular Volume 84.9 fL (80.0-100.0); Mean Platelet Volume 9.8 fL (9.4-12.4); Platelet Count 314 K/uL (130-400); RDW Coefficient of Variation 14.6 % (11.5-14.5); RDW Standard Deviation 44.7 fL (36.4-46.3); Red Blood Count 5.09 M/uL (4.70-6.10); White Blood Count 8.03 K/ul (4.8-10.8)
[2024-05-09 11:32] LABS: BUN Creatinine Ratio 16.7 (10-20); Calcium 9.4 mg/dl (8.6-10.3)
== END 2024-05-09 14:40 | disposition home or self-care (01) | DRG 378 ==
LOC: ED 07:53 → EDINP 10:27 → SUATTDRO 10:27 → 3E 12:48